=== PATIENT | male | born 1970 | race Caucasian/White ===

== ENCOUNTER → 2017-09-21 10:21 | Outpatient (CLI) | payer BC, SELFPAY ==
--- NOTE | 2017-09-21 10:28 | XR_ITS ---
XR KUB HISTORY: ITS.REASON: KIDNEY STONE ORDERING PHYSICIAN: Hong Krueger MD PATIENT AGE: 46 years COMPARISON: 09/15/2017 FINDINGS: The bowel gas pattern is unremarkable. No obvious obstruction.. No abnormal calcifications are evident. No obvious renal or ureteral calculi.. No acute bony anomalies evident. There is a small pelvic calcification on the right and inferiorly consistent with a phlebolith. A curvilinear 4 mm calcific density is present in the mid aspect of the left pelvis. This may be vascular in nature. Blastic areas once again noted involving the right ilium as recently described.. This area measures approximately 3 cm previously measuring 2.2 cm on a KUB of 07/10/2012 IMPRESSION: 1. No acute finding. No definite ureteral calculi. 2. Blastic lesion of the right ilium inferiorly slightly larger compared to an older exam. This may represent an enlarging bone island. Follow-up is recommended. Bone scan may be of further value to evaluate the activity of the lesion clinically aren't
== END ==
PROVIDERS: PCP Family Medicine; Visit Provider Urology
DX: N20.0 Calculus of kidney (principal)
CPT/HCPCS: 74018

== ENCOUNTER 2022-03-19 17:41 | Emergency (ER) | payer BC, SELFPAY ==
[2022-03-19 20:00] VITALS: BP 186/97; PULSE 82; RESP 19; TEMP 37.7; O2SAT 98; BMI 41.5
[2022-03-19 20:26] LABS: UTC Influenza A Antigen Negative (Negative); UTC Influenza B Antigen Negative (Negative)
--- NOTE | 2022-03-19 20:32 | EXP.UTC ---
Discharge Plan Disposition Patient Disposition: Home, Self-Care Condition: Good Prescriptions Prescriptions: New oseltamivir [Tamiflu] 75 mg capsule 75 mg PO BID 5 Days Qty: 10 0RF benzonatate 100 mg capsule 100 mg PO TID PRN (Reason: cough) Qty: 30 0RF No Action amoxicillin 500 mg capsule 500 mg PO Q12H 10 Days Qty: 20 0RF Referrals Follow up/Referrals: James Ramos MD [Primary Care Provider] - See instructions Activity Restrictions/Add. Instructions Additional Instructions/Restrictions: *Monitor Temp, Over the counter Motrin or Tylenol as directed/as needed Tylenol every 4 hours and Motrin every 6 hours (as long as your family doctor has told you that you can take it) for fever or pain. and straight to ER if unable to lower temp less than 101.0 after medication given *Warm salt water gargles may help to soothe the throat *Throat Lozenges? *Warm fluids like tea with honey may help to soothe the throat? *Sleep elevated *Humidifier/Vaporizer Drink plenty of fluids Follow up IMMEDIATELY for new or worsening symptoms or no Noticeable improvement over the next 48-72 hours. 911 for difficulty breathing or swallowing Clinical Impressions Clinical Impression: Flu-like symptoms Stand Alone Forms Stand Alone Forms: Work/School Release Instructions Patient Instructions: DI for Influenza -- Adult, How to Avoid a Cold or Flu, Oseltamivir Discharge ED Provider: Mónica Avery [facility] General Stated complaint: headache ache, body ache Mode of Arrival: Ambulatory Source of Information: Patient Limitations: No Limitations Time Seen by Provider: 03/19/22 20:32 Description of Symptoms (Recalled from Triage Doc. by RN): PATIENT C/O BODY ACHES, FEVER, COUGH, AND CONGESTION X 2 DAYS. RECENTLY EXPOSED TO FLU HEENT Symptoms (Recalled from RN notes): No Resp Symptoms (Recalled from RN notes): Yes Skin Symptoms (Recalled from RN notes): No MS Symptoms (Recalled from RN notes): No Functional Status (Recalled from RN notes): WNL History of Present Illness Provider Complaint: Patient states that he has been around his that tested positive a couple days ago for the flu State that he has been having body aches, cough, fever and nasal congestion State that today he was feeling worse and came in to get checked for the flu Related Data Previous Rx's Medication Instructions Recorded amoxicillin 500 mg capsule 500 mg PO Q12H sinus 10 days #20 10/10/18 caps benzonatate 100 mg capsule 100 mg PO TID PRN cough #30 caps 03/19/22 oseltamivir 75 mg capsule (Tamiflu) 75 mg PO BID 5 days #10 caps 03/19/22 Allergies Allergy/AdvReac Type Severity Reaction Status Date / Time No Known Allergies Allergy Verified 03/19/22 20:13 Worker's Comp Is this a Worker's Comp case?: No PFSH PFSH Medical History (Updated 03/19/22 @ 20:45 by Mónica Avery APRN) Kidney stone Social History (Updated 03/19/22 @ 20:12 by Yessenia Gonzalez RN) Smoking Status: Current every day smoker tobacco type: cigarettes packs per day: 2 alcohol intake: current substance use type: denies use current occupational status: employed Travel in the last 8 weeks: Inside the [place] household members: family housing: house ROS Obtained: Yes All systems reviewed & no additional complaints except as documented and Yes Systems reviewed as appropriate & no additional complaints except as documented Constitutional Constitutional: Reports system reviewed and no additional complaints, except as documented, Reports as per HPI, Reports body ache, Reports chills and Reports fever(s) ENT Ears, Nose, Mouth, and Throat: Reports system reviewed and no additional complaints, except as documented, Reports as per HPI and Reports nasal congestion Cardiovascular Cardiovascular: Reports system reviewed and no additional complaints, except as documented and Reports as per HPI Respiratory Respiratory: Repo
[2022-03-19 20:50] VITALS: BP 186/97; PULSE 82; RESP 19; TEMP 37.7; O2SAT 98
== END 2022-03-19 20:53 | disposition home or self-care (01) ==
PROVIDERS: Emergency Provider Nurse Practitioner; PCP Family Medicine
DX: J11.1 Influenza due to unidentified influenza virus with other respiratory manifestations (principal)
CPT/HCPCS: 87804; 99212; C9803; G0463; U0003; U0005

== ENCOUNTER 2022-04-19 08:06 | Emergency (ER) | payer BC, SELFPAY ==
[2022-04-19] VITALS (7 sets, daily range): BP systolic 135–156; BP diastolic 84–94; PULSE 63–85; RESP 18–20; TEMP 36.6–37.1; O2SAT 94–97; BMI 44.3
--- NOTE | 2022-04-19 08:12 | PC.NURSE ---
UA sent to lab
--- NOTE | 2022-04-19 08:40 | PC.NURSE ---
ANURADHA CONNELL at for patient eval
--- NOTE | 2022-04-19 08:41 | HMH.EDGENADL ---
Discharge Plan Disposition Patient Disposition: Home, Self-Care Condition: Good Prescriptions Prescriptions: New ibuprofen 800 mg tablet 800 mg PO Q8HP PRN (Reason: moderate pain ) Qty: 15 0RF hydrocodone-acetaminophen 5-325 mg tablet 1 tab PO Q6H PRN (Reason: pain) Qty: 8 0RF No Action amoxicillin 500 mg capsule 500 mg PO Q12H 10 Days Qty: 20 0RF oseltamivir [Tamiflu] 75 mg capsule 75 mg PO BID 5 Days Qty: 10 0RF benzonatate 100 mg capsule 100 mg PO TID PRN (Reason: cough) Qty: 30 0RF Referrals Follow up/Referrals: James Ramos MD [Primary Care Provider] - See instructions Activity Restrictions/Add. Instructions Additional Instructions/Restrictions: Ibuprofen as prescribed. [place] as needed for severe pain. Additional instructions for BACK PAIN: See your physician as soon as possible for further evaluation. Return immediately if back pain becomes intolerable, or if fever, numbness or weakness of your legs, loss of control of your bowels or bladder. Additional instructions for CONTROLLED SUBSTANCES: You have been prescribed a medication that is a controlled substance. Controlled substances include pain medications known as opiates and sedative nerve medications known as benzodiazepines. Tramadol, fioricet, and gabapentin are also controlled substances. Some common opiates include: Codeine (such as Tylenol #3) Hydrocodone (Vicodin, Lortab, Lorcet, [place]) Oxycodone (Percocet, Percodan, Oxycodone, Oxy IR) Some common benzodiazepines include: Diazepam (Valium) Lorazepam (Ativan) Alprazolam (Xanax) Clonazepam (Klonopin) Oxazepam (Serax) All of these controlled substances are highly addictive and frequently abused. Misuse can and frequently does lead to addiction as well as overdose and . Medication should be stored in a locked cabinet or other secure storage unit. Do not store the medication in a motor vehicle. Short term supplies, 3 days or less, are prescribed because of the highly addictive nature of the medication. Any of the controlled substance medication NOT taken should be disposed of properly and NOT SAVED. The recommended method of disposing of unused medications is: Place the medicines in a sealable plastic bag. If the medicine is a solid, crush it or add water to dissolve it. Add something undesirable (cat litter, coffee grounds, etc.) Dispose of sealed bag in household trash Do not flush or pour unused medicines down a sink or drain. Controlled substances should not be shared, given away or sold. Because of the addictive nature and frequent abuse, these medications are sometimes stolen. These medications should be kept in a safe place where they cannot be stolen. Do not keep them in your car or purse. Lost or stolen prescriptions for controlled substances WILL NOT BE REFILLED in this emergency department, regardless of whether a police report was filed. Clinical Impressions Clinical Impression: Low back pain Stand Alone Forms Stand Alone Forms: Work/School Release Instructions Patient Instructions: DI for Low Back Pain Discharge ED Provider: David Vallecillo General Adult HPI General Chief complaint: PAIN Stated complaint: Lower RT back pain Time Seen by Provider: 04/19/22 08:31 Mode of Arrival: Ambulatory Source of Information: Patient Limitations: No Limitations Description of Symptoms (Recalled from ER Triage Doc. by RN): pt c/o R flank pain that began lastnight. Pt reports pain worsens with movement. Pt denies any urinary symptoms. Pt reports hx of kidney stones. History of Present Illness HPI narrative: Complains of right lower back pain that began yesterday. States that he reached into the truck to get his lunch bucket and noticed a little twinge in his right lower back and thought at that time it might be a kidney stone. Since then he has severe pains with certain movements. Currently he is in no pain sitting on the side o
--- NOTE | 2022-04-19 08:44 | CT_ITS ---
FINAL REPORT CLINICAL HISTORY: R sided back pain, h/o kidney stones COMPARISON: September 15, 2017 FINDINGS: Axial CT images of the abdomen and pelvis were obtained without intravenous contrast. Coronal reformatted images were also obtained.This study was performed with techniques to keep radiation doses as low as reasonably achievable (ALARA). Individualized dose reduction techniques using automated exposure control or adjustment of mA and/or kV according to the patient's size were employed. Abdomen: There is mild scarring in the anterior right lung base. There is a single less than 3 mm nonobstructing right renal stone with no evidence of hydronephrosis. The gallbladder is present. There is mild fatty infiltration of the liver. There is a 17 mm low-attenuation right adrenal nodule consistent with an adenoma, stable. The spleen and pancreas have an unremarkable, unenhanced appearance. No inflammatory process is identified. There are postoperative changes along the anterior abdominal wall. Pelvis: The appendix is normal. There is no evidence of ureteral dilation or ureteral stone.No mass or abnormal fluid collection is identified. There is widespread colonic diverticulosis. IMPRESSION: Single less than 3 mm nonobstructing right renal stone with no evidence of hydronephrosis. No ureteral stone identified. Mild fatty liver. Widespread colonic diverticulosis without evidence of diverticulitis. Reviewed, Interpreted and Dictated by Stanislav Martinez III, MD Transcribed by Milly Chew Authenticated and [facility]
[2022-04-19 08:59] LABS: Microscopic, Urine URINE MICROSCOPIC (MICROSCOPIC)
[2022-04-19 09:11] LABS: Appearance,Urine CLEAR (Clear); Basophils # 0.1 K/mm3 (0-0.2); Basophils % 1.2 % (0.1-2.0); Bilirubin,Urine Negative (Negative); Blood, Urine Negative (Negative); Color,Urine YELLOW (Yellow); Eosinophils # 0.1 K/mm3 (0.0-0.4); Eosinophils % 2.1 % (0.1-12.0); Glucose,Urine (UA) Negative (Negative); Hematocrit 49.6 % (42.0-52.0); Hemoglobin 16.4 g/dL (14.1-18.0); Ketones,Urine Negative (Negative); Leukocyte Esterase,Urine Negative (Negative); Lymphocytes # 1.6 K/mm3 (0.7-4.5); Lymphocytes % 23.1 % (10-50); Mean Corpuscular HGB Conc 33.1 g/dL (31.8-35.4); Mean Corpuscular Hemoglobin 30.8 pg (27.0-31.2); Mean Platelet Volume 8.9 fl (7.4-10.4); Monocytes # 0.3 K/mm3 (0.1-1.0); Monocytes % 5.1 % (1.7-9.3); Neutrophils # 4.6 K/mm3 (1.8-7.8); Neutrophils % 68.5 % (37.0-80.0); Nitrate,Urine Negative (Negative); Platelet Count 203 K/mm3 (142-424); Protein,Urine Negative (Negative); Red Blood Count 5.34 M/mm3 (4.60-6.20); Red Cell Distribution Width 13.5 % (11.5-17.5); Urobilinogen,Urine 0.2 EU/dl (0.2); White Blood Count 6.8 K/mm3 (4.8-10.8)
[2022-04-19 09:13] LABS: Chloride 108 mmol/L (98-107); Potassium 4.1 mmoL/L (3.5-5.1); Sodium 141 mmol/L (136-145)
[2022-04-19 09:15] LABS: Alanine Aminotransferase 31 U/L (12-78); Alkaline Phosphatase 64 U/L (38-126); Anion Gap 13.1 mEq/L (5-15); Aspartate Amino Transferase 31 U/L (17-59); Bilirubin,Total 0.4 mg/dl (0.2-1.3); Blood Urea Nitrogen 14 mg/dl (9-20); Carbon Dioxide 24 mmol/L (22.0-30.0); Creatinine Clearance Estimated 128 mL/min (50-200); Estimated Glomerular Filt Rate 120 ml/min (>60); GFR (African American) 145 ML/MIN (>60)
[2022-04-19 09:16] LABS: Albumin Level 4.2 g/dl (3.5-5.0); Albumin/Globulin Ratio 1.9 (1.1-1.8); Calcium 9.1 mg/dl (8.4-10.2); Globulin 2.2 g/dL (1.3-3.2); Glucose 138 mg/dl (74-100); Lipase 46 U/L (23-300); Total Protein,Serum 6.4 g/dl (6.3-8.2)
[2022-04-19 09:26] LABS: Bacteria,Urine Trace /lpf; Squamous Epithelial Cell,Urine Occasional #/hpf (0-5)
--- NOTE | 2022-04-19 10:13 | PC.NURSE ---
Rounded on patient, helped get him more comfortable in the bed and his tv turned on. He reports no other needs. family at BS with no needs as well. They are aware that we are waiting on the CT report to be read by the radiologist.
--- NOTE | 2022-04-19 10:16 | PC.NURSE ---
Preliminary report faxed from radiology and given to ANURADHA CONNELL
== END 2022-04-19 10:53 | disposition home or self-care (01) ==
PROVIDERS: Emergency Provider Emergency Medicine; PCP Family Medicine
DX: M54.50 Low back pain, unspecified (principal); Z87.442 Personal history of urinary calculi
CPT/HCPCS: 74176; 80053; 81001; 83690; 85025; 96374; 96375; 99284; J2405

== ENCOUNTER → 2022-04-21 09:50 | Outpatient (CLI) | payer BC, SELFPAY ==
--- NOTE | 2022-04-21 09:57 | XR_ITS ---
FINAL REPORT CLINICAL HISTORY: RT HIP PAIN COMPARISON: CT dated April 19, 2022 and September 15, 2017 FINDINGS: RIGHT HIP Two views of the right hip including an AP pelvis demonstrate no acute fracture or dislocation. There are mild degenerative changes in the hips. A sclerotic focus in the right iliac bone is stable since the CT in 2017. This may represent a bone island. The visualized bony structures are well aligned. No soft tissue abnormality is seen. IMPRESSION: Mild degenerative changes in both hips. Stable sclerotic focus in the right iliac bone may represent a bone island. Reviewed, Interpreted and Dictated by Stanislav Martinez III, MD Transcribed by Milly Chew Authenticated and [facility]
== END ==
PROVIDERS: PCP Family Medicine; Visit Provider Physician Assistant
DX: M25.551 Pain in right hip (principal)
CPT/HCPCS: 73502

== ENCOUNTER → 2022-11-10 13:25 | Outpatient (CLI) | payer BC, SELFPAY | PROVIDERS: PCP Family Medicine; Visit Provider Family Medicine | DX: G47.30 Sleep apnea, unspecified (principal); R53.83 Other fatigue; R06.83 Snoring; R03.0 Elevated blood-pressure reading, without diagnosis of hypertension; E66.01 Morbid (severe) obesity due to excess calories; Z68.42 Body mass index [BMI] 45.0-49.9, adult | CPT/HCPCS: G0399 ==

== ENCOUNTER 2024-09-09 08:26 | Day surgery (SDC) | payer BC, SELFPAY ==
[2024-09-04 17:17] VITALS: BMI 40.6
[2024-09-09] VITALS (8 sets, daily range): BP systolic 117–167; BP diastolic 55–109; PULSE 62–93; RESP 16–18; TEMP 36.2; O2SAT 95–98
--- NOTE | 2024-09-09 09:30 | P.PNANES_ITS ---
[facility] Disclaimer: The information contained in this section may have been updated after the patient was seen, as this information can be updated by other users. Medical History History of ganglion cyst Low back pain Flu-like symptoms Kidney stone Renal colic on right side Surgical History History of hernia repair History of renal stent Family History Other No significant family history Social History Smoking Status: Current every day smoker tobacco type: cigarettes packs per day: 2 alcohol intake: never substance use type: denies use current occupational status: employed Travel in the last 8 weeks?: Inside the [facility] household members: family housing: house Have you lived/traveled outside US in past 30 days?: No Contact w/someone who lives/traveled outside US past 30 days?: No Exposure to someone with infectious disease in past 14 days?: No Do you have a fever (greater than 100.4 F or 38 C)?: No Have you tested positive for COVID-19?: No Exposed to someone with COVID-19 in past 14 days?: No Do you have a sore throat?: No Do you have a cough?: No Do you have any weakness?: No Do you have any diarrhea?: No Are you experiencing any unusual bleeding?: No Do you have any muscle aches/pain?: No Do you have any abdominal pain?: No Are you experiencing loss of taste or smell?: No [facility] Anesthesia Checklist Patient Identification Patient Identification: Arm Band Structural Data Admitted From: Home Planned Operative Procedure/s: Colonoscopy Consent for Planned Operative Procedure(s) Verified: Yes Verified Documents: Surgical Consent and History and Physical NPO Status Verified Time NPO: 07:00 (finished prep) Additional verifications Anesthesia Reactions: No Airway Assessment Mallampati Score:: Class II C-Spine Mobility Assessed: Yes TMJ Mobility Assessed: Yes Dentition: Good Dentition Neurological Assessment Level of Consciousness: Awake, Alert and Appropriate Anesthesia Plan Anesthesia Risk discussed: Yes Anesthesia Plan: Verified ASA Class: III Anesthesia Type: MAC
--- NOTE | 2024-09-09 09:46 | P.HP_ITS ---
History of Present Illness *Admission Date: 09/09/24 *Reason for visit:: Screening for colon cancer *History of present illness: Mr. Peacock is a 53-year-old gentleman who is here for initial screening colonoscopy. The examination is deemed medically necessary for screening colonoscopy. The patient has been seen, interviewed and examined prior to the procedure by both myself and the anesthesia provider. [facility] Disclaimer: The information contained in this section may have been updated after the patient was seen, as this information can be updated by other users. Medical History (Updated 09/09/24 @ 09:56 by Damaso Riley II, MD) History of ganglion cyst Low back pain Flu-like symptoms Kidney stone Renal colic on right side Surgical History History of hernia repair History of renal stent Family History Other No significant family history Social History Smoking Status: Current every day smoker tobacco type: cigarettes packs per day: 2 alcohol intake: never substance use type: denies use current occupational status: employed Travel in the last 8 weeks?: [place] the [place] household members: family housing: house Have you lived/traveled outside US in past 30 days?: No Contact w/someone who lives/traveled outside US past 30 days?: No Exposure to someone with infectious disease in past 14 days?: No Do you have a fever (greater than 100.4 F or 38 C)?: No Have you tested positive for COVID-19?: No Exposed to someone with COVID-19 in past 14 days?: No Do you have a sore throat?: No Do you have a cough?: No Do you have any weakness?: No Do you have any diarrhea?: No Are you experiencing any unusual bleeding?: No Do you have any muscle aches/pain?: No Do you have any abdominal pain?: No Are you experiencing loss of taste or smell?: No Other Medical History Have you received the Flu Vaccine for this season: No Have you received the Pneumonia Vaccine: No Review of Systems Review of Systems Review of systems (narrative): Negative *Cardiovascular Comments: Negative *Gastrointestinal Comments: Negative *Genitourinary Comments: Negative *Musculoskeletal Comments: Negative *Neurologic Comments: Negative Meds Home Medications and Allergies Home Medications ?Medication ?Instructions ?Recorded ?Confirmed ?Type irbesartan 300 mg tablet 300 mg PO DAILY 09/04/24 09/04/24 History New Prescriptions to Start Prescriptions: Allergies Allergy/AdvReac Type Severity Reaction Status Date / Time No Known Allergies Allergy Verified 08/03/22 11:29 Exam Data for Last 24 hours Vital signs and Labs for Last 24 Hours: Temp Pulse Resp BP Pulse Ox O2 Del Method 97.1 F L 83 18 167/109 H 96 Room Air 09/09/24 09:11 09/09/24 09:11 09/09/24 09:11 09/09/24 09:11 09/09/24 09:11 09/09/24 09:11 *Routine HEENT Exam Head: Present normocephalic Eye: Present EOMI and PERRL ENT: Present mucous membranes moist *Routine Neck Exam Neck: Present supple *Routine Respiratory Exam Respiratory: Present CTA bilaterally *Routine Cardiovascular Exam Cardiovascular: Present RRR *Routine Abdominal Exam Abdominal: Present soft and normoactive bowel sounds; Absent tenderness *Routine Rectal Exam Rectal:: deferred *Routine Genitalia Exam Genitalia:: deferred *Routine Extremities Exam Extremities: Absent cyanosis, clubbing or edema *Routine Skin Exam Skin: Present warm; Absent rash *Routine Neurological Exam Neurological: Present alert and oriented X3 Assessment and Plan *Assessment and plan (1) Screening for colon cancer: Status: Acute Category: Medical Code(s): Z12.11 - Encounter for screening for malignant neoplasm of colon (2) Bleeding internal hemorrhoids: Status: Acute Category: Medical Code(s): K64.8 - Other hemorrhoids Plan A/P: 1. Screening for colon cancer is the preprocedural diagnosis. The patient will be anesthetized/sedated using MAC sedation. The patient has been seen and examined. Cardiac and lung assessment prior to the examination is stable. Proceed with planned initial screening colonoscopy.
--- NOTE | 2024-09-09 09:56 | HMH.PROCNOTE ---
[facility] Procedure Note Date: 09/09/24 Time: 10:12 Procedure Note:: Colonoscopy Procedure Report: Colonoscopy with hemorrhoid band ligation Endoscopist: Damaso Riley II, MD Referring physician: James Ramos MD Date of Procedure: September 09, 2024 Equipment: Olympus 190 variable stiffness pediatric colonoscope Sedation: MAC sedation Indication: Mr. Peacock is a 53-year-old gentleman who is here for initial screening colonoscopy. He reports no abdominal pain, weight loss or change in his bowel habits. The patient does have some longer-term hemorrhoidal bleeding with blood in the toilet bowl and on the tissue that may occur 2 or 3 times a week. This has been going on for more than a year. He also gets some hemorrhoidal prolapse. He does state that his maternal aunt may have had colon cancer. Procedure: Prior to the procedure, a history and physical exam was performed, and patient's medications and allergies were reviewed. The risks, benefits and alternatives of the sedation and procedure were discussed with the patient. All questions were answered and informed consent was obtained. The patient was brought to the procedure room. Patient identification and proposed procedure were verified by the physician and the nurse. The patient was placed in a left lateral decubitus position and the scope was passed under direct vision. Throughout the procedure, the patient's blood pressure, pulse, and oxygen saturations were monitored continuously. The colonoscopy was accomplished without difficulty. The patient tolerated the procedure well. Findings: On digital rectal examination there was normal rectal tone. There were no external hemorrhoids. The colonoscope was introduced through the anal canal to the rectum and advanced to the cecum. The ileocecal valve and appendiceal orifice were identified. The scope was advanced a short distance into the ileum which appeared grossly normal. The scope was then withdrawn into the colon. The cecum, ascending and transverse colon and mucosa were grossly normal. There were scattered diverticuli throughout the colon but more predominantly in the descending and sigmoid colon (LEFT colon). The rectum itself was normal. Upon retroflexion within the rectum there were grade 2-3 internal hemorrhoids. 3 columns of hemorrhoids were banded using 3 bands with excellent ligation effect. The preparation was excellent throughout with [place] Preparation Score of 9. The cecal time was 12 minutes. Impression: 1. Pandiverticulosis 2. Grade 2-3 internal hemorrhoids status post band ligation x 3 Plan: The patient will not require surveillance colonoscopy again for 10 years by ACS guidelines. I would encourage psyllium bulking fiber supplementation on a long-term daily maintenance basis.
== END 2024-09-09 11:20 | disposition home or self-care (01) ==
PROVIDERS: PCP Family Medicine; Visit Provider Internal Medicine Gastroenterology
PROC: 0DJD8ZZ Inspection of Lower Intestinal Tract, Via Natural or Artificial Opening Endoscopic (ICD-10-PCS; CPT 45378; principal; 2024-09-09 10:00)
DX: Z12.11 Encounter for screening for malignant neoplasm of colon (principal); K62.5 Hemorrhage of anus and rectum; K64.8 Other hemorrhoids; K57.30 Diverticulosis of large intestine without perforation or abscess without bleeding
CPT/HCPCS: 45398; C1889

== ENCOUNTER 2024-10-07 22:00 | Emergency (ER) | payer BC, SELFPAY ==
[2024-10-07] VITALS (7 sets, daily range): BP systolic 152–170; BP diastolic 78–107; PULSE 61–74; RESP 16; TEMP 36.8; O2SAT 96–98; BMI 39.4
--- OUTSIDE RECORDS SUMMARY | 2024-10-07 22:41 | XMS_ITS | Data Portability ---
Author Organization [facility] Address [address] [place] [address] Assessment Encounter Date Assessment Date Assessment LastModified by Organization Details LastModified Time 09/25/2017 09/25/2017 SURGERY DATE: 09/25/2017 PREOPERATIVE DIAGNOSIS: Right proximal ureteral stone. POSTOPERATIVE DIAGNOSIS: Right proximal ureteral stone. PROCEDURE: Right ureteroscopy, laser lithotripsy and stone extraction with right stent placement. ANESTHESIA: General. COMPLICATIONS: None. CONDITION: Stable. SURGEON: Hong Krueger MD INDICATIONS: This is a 46-year-old white male with a 5 mm stone at the junction of the proximal to mid ureter. He has been dealing with the stone for a couple of weeks now and wants to proceed with urologic management as he has missed too much work. OPERATIVE NOTE: The patient taken to the operating room after informed consent was obtained. He was placed on the operating table in supine position. General anesthesia administered. Sequential compression device was placed and preoperative antibiotics administered. The patient was then placed into dorsal lithotomy position and prepped and draped in the standard surgical fashion. A 21-Belgian cystoscope passed into the urethra and into the bladder. The bladder was within normal limits. A guidewire passed into the right ureteral orifice and up to the level of the stone, but there was difficulty guiding the wire by the stone, so a ureteral catheter was passed over the wire and up to the level of the stone and we were able to leap frog the wire by the stone. The wire passed into the renal pelvis and we removed the ureteral catheter and removed the cystoscope and passed our semirigid ureteroscope into the bladder and into the right ureter and up to the level of the stone. A 200 nm laser wire was then used to fragment the stone. The stone was impacted at point of obstruction. It was right at the level of the iliac vessels as well. Care was taken to break the stone into small fragments and a 2.4 Belgian Nitinol stone basket then used to basket the larger fragments out. After all the significant stones were removed, the ureteroscope was removed and there was no injury to the ureter. We replaced our cystoscope and back loaded the wire over the scope and passed a 4.8 x 26 Belgian stent. The wire was removed and a good curl was noted proximally and distally. The string was left on for late removal. Some of the stone fragments were send off for analysis. The stone was not well calcified. The patient was transferred to recovery room in stable condition. [email or web address] Not available 09/26/2017 01:36:18 Plan of Treatment Reminders Order Date Submit Date Provider Last Modified By Organization Details Last Modified Time Details Appointments None record ed. Lab None record ed. Referral None record ed. Procedures None record ed. Surgeries None record ed. Imaging None record ed. Medication Orders None record ed. Patient TargetsNo targets recorded. Patient InstructionsNo instructions recorded. Reason for Referral None Reported. Results Created Date Observation Date Name Description Value Unit Range Abnormal Flag Note LastModifiedBy Organization Detail LastModifiedTime 09/26/19 18 09/28/2017 kidne y stone yulia sis nidus Not observ ed normal Not Available [facility] [address] [place], [address], 09/28/2017 17:05:32 09/26/19 18 09/28/2017 kidne y stone yulia sis composition See Below normal Calci um Oxala te Dihyd rate (Wedd ellit e) 60% Calci um Oxala te Monoh ydrat e (Whew ellit e) 20% Carbo vini Apati te (Dahl lite) 20% Not Available [facility] [address] [place], [address], 09/28/2017 17:05:32 09/26/19 18 09/28/2017 kidne y stone yulia sis weight 0.0140 g normal This test was devel oped and its yulia tical perfo rmanc e clarence cteri stics have been deter mined by [facility] Rachel jitendra. It has not been clear ed or appro phuong by the [place] Food and Drug Admin istra tion. This assay has been valid ated pursu ant to the CLIA regul ation s and is used for clini rita purpo ses. TEST PERFO RMED AT: [facility] [address] [place] [address] Rahat URBANO,PHD Not Available [facility] [address] [place] [address], [phone], 09/28/2017 17:05:32 Result Notes None recorded. Medical Equipment None Reported. Medications Name Sig Start Date Stop Date Status Note LastModified by Organization Details LastModified Time Keflex 500 mg capsule Take 1 capsule every 6 hours by oral route. 018 active Not Available Not Available Not Avai lable [place] 5 mg-325 mg tablet Take 1 tablet every 6 hours by oral route. 018 active Not Available Not Available Not Avai lable Vitals None Recorded Social History None recorded. Functional Status None recorded. Mental Status None recorded. Family History Nothing Reported. Medical History No medical history recorded. Past Encounters Encounter ID Performer Location Encounter Start Date Encounter Closed Date Diagnosis/Indication Diagnosis SNOMED-CT Code Diagnosis ICD10 Code Diagnosis Note [id number] HONG KRUEGER MD SURGERY SCHEDULE [address] [place] [id number] 09/25/2017 14:16:59 09/25/2017 14:17:42 Health Concerns Section Related Observation LastModified by Organization Detai ls LastModified Time None Recorded Concern Status LastModified by Organization Details LastModified Time None Recorded Advance Directives Directive None Recorded Payers Insurance Date Sequence Insurance Name Policy Number Policy Winter Covered Member ID Winter Member ID Guarantor Name 04/01/2020 1 [employer] [id number] Howard Peacock [id number] James Peacock
[2024-10-07] MEDS: ONDANSETRON 4MG/2ML VIAL 4 MG IV (23:36)
[2024-10-07] MEDS: LACTATED RINGERS 1000ML 1,000 ML 999 ML IV (23:36)
[2024-10-07 23:37] LABS: HIV Combo NEGATIVE (Negative)
[2024-10-07] MEDS: MORPHINE 4MG/ML SYRINGE 4 MG IV (23:37)
[2024-10-07] MEDS: KETOROLAC 30MG/ML VIAL 30 MG IV (23:37)
[2024-10-07 23:45] LABS: Alanine Aminotransferase 21 U/L (12-78); Albumin Level 4.3 g/dl (3.5-5.0); Alkaline Phosphatase 65 U/L (38-126); Anion Gap 8.1 mEq/L (5-15); Aspartate Amino Transferase 22 U/L (17-59); Bilirubin,Total 0.7 mg/dl (0.2-1.3); Blood Urea Nitrogen 15 mg/dl (9-20); Calcium 9.2 mg/dl (8.4-10.2); Carbon Dioxide 30 mmol/L (22.0-30.0); Chloride 106 mmol/L (98-107); Creatinine Clearance Estimated 154 mL/min (50-200); Estimated Glomerular Filt Rate 79 ml/min (>60); GFR (African American) 95 ML/MIN (>60); Globulin 2.2 g/dL (1.3-3.2); Glucose 120 mg/dl (74-100); Hepatitis C Ab Qual. W/ RFX NEGATIVE (Negative); Potassium 4.1 mmoL/L (3.5-5.1); Sodium 140 mmol/L (136-145); Total Protein,Serum 6.5 g/dl (6.3-8.2)
[2024-10-07 23:46] LABS: Basophils # 0.1 K/mm3 (0-0.2); Basophils % 0.6 % (0.1-2.0); Eosinophils # 0.2 Kmm3 (0.0-0.4); Eosinophils % 1.9 % (0.1-12.0); Hematocrit 45.7 % (42.0-52.0); Hemoglobin 15.9 g/dL (14.1-18.0); Immature Granulocytes # 0.03 10^3uL; Immature Granulocytes % 0.4 %; Lymphocytes # 1.7 K/mm3 (0.7-4.5); Lymphocytes % 20.1 % (10-50); Mean Corpuscular HGB Conc 34.8 g/dL (31.8-35.4); Mean Corpuscular Hemoglobin 31.7 pg (27.0-31.2); Mean Corpuscular Volume 91.2 fl (80-94); Mean Platelet Volume 10.4 fl (7.4-10.4); Monocytes # 0.7 K/mm3 (0.1-1.0); Monocytes % 7.9 % (1.7-9.3); Neutrophils # 5.8 K/mm3 (1.8-7.8); Neutrophils % 69.1 % (37.0-80.0); Nucleated Red Blood Cells # 0 10^3/uL; Nucleated Red Blood Cells % 0 %; Platelet Count 200 K/mm3 (142-424); Red Blood Count 5.01 M/mm3 (4.60-6.20); Red Cell Distribution Width 13.2 % (11.5-17.5); Red Cell Distribution Width-SD 44.6 fL; White Blood Count 8.4 K/mm3 (4.8-10.8)
[2024-10-08] VITALS (8 sets, daily range): BP systolic 129–170; BP diastolic 59–104; PULSE 63–75; RESP 18; TEMP 36.6; O2SAT 94–97
--- NOTE | 2024-10-08 | CT_ITS ---
PROCEDURE INFORMATION: Exam: CT Abdomen And Pelvis With Contrast Exam date and time: 10/08/2024 12:25 AM Age: 53 years old Clinical indication: Abdominal pain; Additional info: R flank pain HX kidney stones TECHNIQUE: Imaging protocol: Computed tomography of the abdomen and pelvis with contrast. Radiation optimization: All CT scans at this facility use at least one of these dose optimization techniques: automated exposure control; mA and/or kV adjustment per patient size (includes targeted exams where dose is matched to clinical indication); or iterative reconstruction. Contrast material: ISOVUE; Contrast volume: 75 ml; Contrast route: IV; COMPARISON: CT ABDOMEN PELVIS WO CON 04/19/2022 8:52 AM FINDINGS: Lungs: Minimal to mild atelectasis/scarring. Liver: Fatty infiltration. Gallbladder and biliary ducts: No calcified stones. No ductal dilation. Pancreas: Unremarkable. No ductal dilation. Spleen: Mildly enlarged, stable. Adrenal glands: 2.0 x 2.0 x 1.8 cm lesion within lateral limb of RIGHT adrenal gland, mildly increased in size, indeterminate by CT criteria. Probable 1.3 x 0.8 x 1.0 cm adenoma within medial limb of RIGHT adrenal gland. Kidneys and ureters: Moderate stranding about RIGHT kidney. Several too small to characterize lesions within kidneys (<1 cm). Small calculus within LEFT kidney. Moderate pelvocaliectasis of RIGHT kidney. Moderate dilatation of RIGHT proximal ureter. 0.6 x 0.5 x 0.5 cm calculus within RIGHT mid ureter. Stomach and bowel: No definite mural thickening. No obstruction. Appendix: Normal caliber. No inflammation. Intraperitoneal space: No significant fluid collection. No definite free air. Vasculature: Mild to moderate atherosclerotic disease of aorta and iliac arteries. No aneurysm. Lymph nodes: No pathologically enlarged lymph nodes. Urinary bladder: Unremarkable. Reproductive: Unremarkable as visualized. Bones/joints: No acute fracture. Soft tissues: Postsurgical changes of anterior abdominal wall. IMPRESSION: 1. RIGHT mid ureteral calculus with moderate hydroureteronephrosis. 2. RIGHT adrenal lesion, mildly increased in size. Recommend nonemergent MRI to exclude malignancy. COMMENTS: Consistent with the [employer]'s Incidental Findings Committee white paper (J Am Cheryl Radiol 2018): Any incidental renal lesion less than 1 cm or classified as too small to characterize, or any incidental cystic renal lesion characterized as simple-appearing, is likely benign. No follow-up imaging is recommended for these lesions per consensus recommendations based on imaging criteria.
[2024-10-08 00:03] LABS: Prothrombin Time 10.7 seconds (10.1-12.5)
[2024-10-08 00:04] LABS: INR 0.96 (0.9-1.1)
[2024-10-08] MEDS: IOPAMIDOL-370 (76%);100ML BOTTLE 75 ML IV (00:27)
[2024-10-08 00:59] LABS: Microscopic, Urine URINE MICROSCOPIC (MICROSCOPIC)
[2024-10-08 01:00] LABS: Appearance,Urine CLEAR (Clear); Bilirubin,Urine Negative (Negative); Blood, Urine 2+ (Negative); Color,Urine YELLOW (Yellow); Glucose,Urine (UA) Negative (Negative); Ketones,Urine Negative (Negative); Leukocyte Esterase,Urine Negative (Negative); Nitrate,Urine Negative (Negative); PH,Urine 6.5 (5.0-8.5); Protein,Urine Negative (Negative); Urobilinogen,Urine 0.2 EU/dl (0.2)
[2024-10-08 01:08] LABS: RBC,Urine TNTC #/hpf (0-3)
[2024-10-08] MEDS: TAMSULOSIN 0.4MG CAPSULE 0.4 MG PO (02:11)
[2024-10-08] MEDS: OXYCODONE 5MG IMMEDIATE RELEASE TABLET 2.5 MG PO (02:12)
--- NOTE | 2024-10-08 02:32 | HMH.EDGENADL ---
Discharge Plan Disposition Patient Disposition: Home, Self-Care Condition: Fair Prescriptions Prescriptions: New ondansetron 4 mg tablet,disintegrating 4 mg PO Q6H PRN (Reason: nausea and vomiting) Qty: 10 0RF hydrocodone-acetaminophen 5-325 mg tablet 1 tab PO Q6H PRN (Reason: pain) Qty: 10 0RF tamsulosin 0.4 mg capsule 0.4 mg PO HS Qty: 14 0RF No Action irbesartan 300 mg Tablet 300 mg PO DAILY Referrals Follow up/Referrals: James Ramos MD [Primary Care Provider, Medical] - See instructions Referral Note: follow up for kidney stone follow up for R adrenal adenoma Hong Krueger MD [Referring, Urology] - See instructions Referral Note: 6mm R ureteral stone w/ hydro. Patient is a prior patient of yours Activity Restrictions/Add. Instructions Additional Instructions/Restrictions: Your evaluated in the ER and are appropriate for discharge at this time. Take the prescribed medications as directed. Take tamsulosin to help pass the stone. Urinate through a strainer and catch the stone if possible. Drink plenty of fluids to maintain good hydration, good kidney function, and to help pass the stone. Take Tylenol ibuprofen if needed for pain, do not exceed the recommended dose on the bottle. Drink water and eat a small snack each time you take these medications to avoid side effects. Only take the prescribed hydrocodone?acetaminophen if needed for severe breakthrough pain. This is a controlled substance and can cause addiction. They can also cause constipation so you may need to take a fiber supplement or gentle laxative. Do not drive or operate machinery after taking hydrocodone. Be mindful that the hydrocodone contains acetaminophen (Tylenol) so be cautious of this when considering your daily maximum acetaminophen dose. Take the prescribed ondansetron (Zofran) if needed for nausea or vomiting. Call Dr. Krueger's office first thing in the morning to make an appointment for follow-up. Also call Dr. Ramos's office for close outpatient follow-up. Dr. Ramos's office may be able to help you get quicker follow-up with a urologist if needed. Return to the ER with any new, worsening, or otherwise concerning symptoms as discussed including but not limited to uncontrollable pain, symptoms of urinary infection including fever or burning with urination, or decreased urine output. Clinical Impressions Clinical Impression: Ureterolithiasis, Acute right flank pain, Hydronephrosis Stand Alone Forms Stand Alone Forms: Work/School Release Print Language Print Language: Tuvaluan Discharge ED Provider: Parth Garcia Adult HPI General Chief complaint: PAIN Stated complaint: Pain rt side poss kidney stones Time Seen by Provider: 10/07/24 23:24 Mode of Arrival: Ambulatory Source of Information: Patient Description of Symptoms (Recalled from ER Triage Doc. by RN): Pt presents with right flank pain that began at approx 2030. Rates pain 8/10. Hx of kidney stones. Pt denies dysuria, nausea present. History of Present Illness HPI narrative: 53-year-old male with history of kidney stones presents to the ER with right flank pain that began approximately 1.5 hours prior to arrival. Patient reports his pain is 8 out of 10. It is mainly in the mid right flank but does radiate to the low abdomen as well. No dysuria or hematuria. Patient is having nausea but no vomiting. No fevers or chills, no chest pain or difficulty breathing. Patient reports this feels exactly like kidney stone. He has previously had to have stones removed and stents placed which was done by Dr. Krueger many years ago. Related Data Home Medications ?Medication ?Instructions ?Recorded ?Confirmed irbesartan 300 mg tablet 300 mg PO DAILY 09/04/24 09/04/24 Previous Rx's ?Medication ?Instructions ?Recorded hydrocodone 5 mg-acetaminophen 325 1 tab PO Q6H PRN pain #10 tabs 10/08/24 mg tablet ondansetron 4 mg disintegrating 4 mg PO Q6H PRN nausea and 10/08/24 tablet vomiting #10 tabs tamsulosin 0.4 mg capsule 0.4 mg PO HS #14 caps 10/08/24 Allergies Allergy/AdvReac Type Severity Reaction Status Date / Time No Known Allergies Allergy Verified 08/03/22 11:29 [facility] Disclaimer: The information contained in this section may have been updated after the patient was seen, as this information can be updated by other users. Medical History (Updated 10/08/24 @ 02:09 by Nery Mcclain MD) History of ganglion cyst Low back pain Flu-like symptoms Kidney stone Renal colic on right side Surgical History History of hernia repair History of renal stent Family History Other No significant family history Social History Smoking Status: Current every day smoker tobacco type: cigarettes packs per day: 2 alcohol intake: never substance use type: denies use current occupational status: employed Travel in the last 8 weeks?: Inside the [place] household members: family housing: house Have you lived/traveled outside US in past 30 days?: No Contact w/someone who lives/traveled outside US past 30 days?: No Exposure to someone with infectious disease in past 14 days?: No Do you have a fever (greater than 100.4 F or 38 C)?: No Have you tested positive for COVID-19?: No Exposed to someone with COVID-19 in past 14 days?: No Do you have a sore throat?: No Do you have a cough?: No Do you have any weakness?: No Do you have any diarrhea?: No Are you experiencing any unusual bleeding?: No Do you have any muscle aches/pain?: No Do you have any abdominal pain?: No Are you experiencing loss of taste or smell?: No Other Medical History Have you received the Flu Vaccine for this season: No Have you received the Pneumonia Vaccine: No ROS Obtained: Yes Systems reviewed as appropriate & no additional complaints except as documented Per HPI Physical Exam General General appearance: alert and in no apparent distress Head Head exam: atraumatic and normocephalic Eye Eye exam: Present PERRL and EOMI ENT ENT exam: Present mucous membranes moist Neck Neck exam: Present normal inspection and full ROM Chest Chest inspection: Present symmetric chest wall rise Respiratory Respiratory exam: Present normal lung sounds bilaterally; Absent respiratory distress, wheezes or stridor Cardiovascular Cardiovascular exam: Present regular rate and normal rhythm Abdominal Exam Abdominal exam: Present soft; Absent distention or tenderness Extremities Exam Extremities exam: Present full ROM Back Exam Back exam: Present CVA tenderness (R); Absent CVA tenderness (L) Neurological Exam Neurological exam: Present alert and oriented X3; Absent motor sensory deficit Psychiatric Psychiatric exam: Present normal affect and normal mood Skin Skin exam: Present warm and dry Medical Decision Making Medical Records Medical records reviewed: Yes I reviewed the patient's medical records. Screening: Per USPSTF and CDC recommendations, given the prevalence of disease in our region, it is our hospital?s policy to screen for HIV and viral Hepatitis for all patients aged 18 and over and those with ongoing risk factors. MR Comment: CT abdomen pelvis from April 2022 demonstrated intrarenal stone 3 mm. Wander Inquiry Pt receiving controlled substance: Yes Wander was queried for this patient: No Reason not queried -: Emergent pt cond-no time Risks and benefits of using a controlled substance: were discussed with pt by me Comment: PDMP reviewed by me and negative Vital Signs: 10/07/24 22:16 10/07/24 22:35 10/07/24 22:45 Temperature 98.3 F Temperature Source Oral Pulse Rate 69 74 Pulse Rate [Left] 67 Respiratory Rate 16 Blood Pressure 154/90 H Blood Pressure [Right Arm] 156/90 H Blood Pressure Mean Blood Pressure Mean [Right Arm] 112 Blood Pressure Source Blood Pressure Source [Right Arm] Automatic Cuff Blood Pressure Position Blood Pressure Position [Right Arm] Sitting 02 Sat by Pulse Oximetry 96 98 98 Oxygen Delivery Method Room Air 10/07/24 23:00 10/07/24 23:30 10/07/24 23:42 Temperature Temperature Source Pulse Rate 69 68 68 Pulse Rate [Left] Respiratory Rate Blood Pressure 152/88 H 160/78 H 164/107 H Blood Pressure [Right Arm] Blood Pressure Mean Blood Pressure Mean [Right Arm] Blood Pressure Source Blood Pressure Source [Right Arm] Blood Pressure Position Blood Pressure Position [Right Arm] 02 Sat by Pulse Oximetry 97 96 97 Oxygen Delivery Method 10/07/24 23:43 10/08/24 00:01 10/08/24 00:45 Temperature Temperature Source Pulse Rate 61 67 73 Pulse Rate [Left] Respiratory Rate Blood Pressure 170/107 H 141/71 H 152/98 H Blood Pressure [Right Arm] Blood Pressure Mean 94 Blood Pressure Mean [Right Arm] Blood Pressure Source Blood Pressure Source [Right Arm] Blood Pressure Position Blood Pressure Position [Right Arm] 02 Sat by Pulse Oximetry 96 95 97 Oxygen Delivery Method 10/08/24 00:57 10/08/24 00:59 10/08/24 01:00 Temperature Temperature Source Pulse Rate 69 63 70 Pulse Rate [Left] Respiratory Rate Blood Pressure 170/104 H 159/95 H 148/87 H Blood Pressure [Right Arm] Blood Pressure Mean Blood Pressure Mean [Right Arm] Blood Pressure Source Blood Pressure Source [Right Arm] Blood Pressure Position Blood Pressure Position [Right Arm] 02 Sat by Pulse Oximetry 95 95 94 L Oxygen Delivery Method 10/08/24 01:31 10/08/24 02:00 10/08/24 02:17 Temperature 97.9 F Temperature Source Oral Pulse Rate 75 68 68 Pulse Rate [Left] Respiratory Rate 18 Blood Pressure 129/59 L 141/76 H 141/76 H Blood Pressure [Right Arm] Blood Pressure Mean Blood Pressure Mean [Right Arm] Blood Pressure Source Automatic Cuff Blood Pressure Source [Right Arm] Blood Pressure Position Supine Blood Pressure Position [Right Arm] 02 Sat by Pulse Oximetry 95 96 Oxygen Delivery Method Room Air Lab Data Lab Results 10/07/24 22:31: WBC 8.4, RBC 5.01, Hgb 15.9, Hct 45.7, MCV 91.2, MCH 31.7 H, MCHC 34.8, RDW 13.2, Plt Count 200, MPV 10.4, Neut % (Auto) 69.1, Lymph % (Auto) 20.1, Tama % (Auto) 7.9, Eos % (Auto) 1.9, Baso % (Auto) 0.6, Neut # (Auto) 5.8, Lymph # (Auto) 1.7, Tama # (Auto) 0.7, Eos # (Auto) 0.2, Baso # (Auto) 0.1, PT 10.7, INR 0.96, Sodium 140, Potassium 4.1, Chloride 106, Carbon Dioxide 30, Anion Gap 8.1, BUN 15, Creatinine 1.00, Estimated Creat Clear 154, Estimated GFR 79, Est GFR ( Amer) 95, Glucose 120 H, Calcium 9.2, Total Bilirubin 0.7, AST 22, ALT 21, Alkaline Phosphatase 65, Total Protein 6.5, Albumin 4.3, Globulin 2.2, Albumin/Globulin Ratio 2.0 H, HCV Ab ZARIA w/Rflx PCR Qn Negative, HIV Ag/Ab Combo Qual Negative 10/08/24 00:55: Urine Color Yellow, Urine Appearance Clear, Urine pH 6.5, Ur Specific Ada 1.010, Urine Protein Negative, Urine Glucose (UA) Negative, Urine Ketones Negative, Urine Blood 2+ A, Urine Nitrate Negative, Urine Bilirubin Negative, Urine Urobilinogen 0.2, Ur Leukocyte Esterase Negative, Urine RBC Tntc 10/07/24 22:31 10/07/24 22:31 Orders (Tests/Meds): ED MEDICATIONS Discontinued Medications Generic Name Dose Route Start Last Admin Trade Name Dhara PRN Reason Stop Dose Admin Lactated Ringer's 1,000 mls @ 999 mls/hr 10/07/24 23:31 10/07/24 23:36 Lactated Ringer's 1000 Ml Bag IV 10/08/24 00:31 999 mls/hr .Q1H1M ONE Administration Iopamidol 75 ml 10/08/24 00:26 10/08/24 00:27 Iopamidol-370 (76%);100ml Bottle IV 10/08/24 00:27 75 ml ONCE ONE Administration Ketorolac Tromethamine 30 mg 10/07/24 23:29 10/07/24 23:37 Ketorolac 30mg/Ml Vial IV 10/07/24 23:30 30 mg ONCE ONE Administration Morphine Sulfate 4 mg 10/07/24 23:29 10/07/24 23:37 Morphine 4mg/Ml Syringe IV 10/07/24 23:30 4 mg ONCE ONE Administration Ondansetron HCl 4 mg 10/07/24 23:29 10/07/24 23:36 Ondansetron 4mg/2ml Vial IV 10/07/24 23:30 4 mg ONCE ONE Administration Oxycodone HCl 2.5 mg 10/08/24 02:10 10/08/24 02:12 Oxycodone 5mg Immediate Release Tablet PO 10/08/24 02:11 2.5 mg ONCE ONE Administration Tamsulosin HCl 0.4 mg 10/08/24 02:15 10/08/24 02:11 Tamsulosin 0.4mg Capsule PO 10/08/24 02:16 0.4 mg ONCE ONE Administration ORDERS Category Date Time Status CT abdomen pelvis w con Stat Cat Scan 10/08/24 00:00 Completed CBC w/Auto Diff [Complete Blood Count Auto Diff] Stat Lab 10/07/24 22:31 Completed CMP [Comprehensive Metabolic Panel] Stat Lab 10/07/24 22:31 Completed HIV Combo Stat Lab 10/07/24 22:31 Completed Hepatitis C Ab Qual. W/ RFX Stat Lab 10/07/24 22:31 Completed PT INR [Prothrombin Time INR] Stat Lab 10/07/24 22:31 Completed Urinalysis and Microscopic Stat Lab 10/08/24 00:55 Completed Medical Decision Narrative: In summary, this 53-year-old male with comorbidities described in the HPI presents to the emergency department today with right flank pain. On initial evaluation patient is hemodynamically stable, afebrile, positive right CVA tenderness, no reproducible abdominal pain on exam, remainder of exam benign. Differential diagnosis includes but is not limited to urinary tract infection, hydronephrosis, pyelonephritis, ureterolithiasis, nephrolithiasis, kidney dysfunction, among others. Based on these concerns, I ordered serum labs, CT imaging, urine studies. Patient received IV fluids, Toradol, morphine, Zofran for treatment. Labs personally reviewed demonstrate no leukocytosis or anemia, platelets normal, PT/INR normal, CMP nonactionable with good kidney function, UA negative for findings of infection no blood is present. This could be related to kidney stone. CT abdomen pelvis personally interpreted demonstrates right ureterolithiasis with hydronephrosis. See radiology read for final interpretation which also comments on small right adrenal adenoma. This adrenal adenoma has been previously visualized on the CT abdomen pelvis from 2021. On reassessment patient's pain is well-controlled and he is resting comfortably. Tamsulosin administered. I believe he is appropriate for discharge. He has seen Dr. Krueger in the past so I placed a referral back to him for close outpatient follow-up. I prescribed Zofran, tamsulosin, [place] for outpatient management. Since the patient does not have pain medications at home, he did receive low-dose oxycodone prior to discharge to keep him comfortable through the night until he is able to mixing picker tender prescriptions at the pharmacy. He was encouraged to drink plenty of fluids and urinate through a strainer to capture the stone if it passes. He was given strict instructions on follow-up with urology and primary care for both the stone and adrenal adenoma, as well as strict return precautions for the ER. He indicated understanding and the patient was discharged in stable condition. Critical Care Critical Care Time Critical Care Time: No
== END 2024-10-08 02:22 | disposition home or self-care (01) ==
PROVIDERS: Emergency Medicine; Emergency Provider Emergency Medicine; PCP Family Medicine
DX: N13.0 Hydronephrosis with ureteropelvic junction obstruction (principal); R10.31 Right lower quadrant pain; R11.0 Nausea; F17.210 Nicotine dependence, cigarettes, uncomplicated; Z11.59 Encounter for screening for other viral diseases; Z11.4 Encounter for screening for human immunodeficiency virus [HIV]
CPT/HCPCS: 74177; 80053; 81001; 85025; 85610; 86803; 87389; 96361; 96374; 96375; 99285; J1885; J2270; J2405; J7120; Q9967

== ENCOUNTER 2024-11-02 06:08 | Emergency (ER) | payer BC, SELFPAY ==
--- OUTSIDE RECORDS SUMMARY | 2024-04-19 11:00 | XMS_ITS ---
Author Organization [facility] Address [address] [facility] [address] [place] [id number] Care Team Providers Care Angle Roll Operator Name Role Phone Bulmaro Ramos Primary Care Provider Allergies No Known Allergies REASON FOR VISIT 6 month check Medications Medication SIG (Take, Route, Frequency, Duration) Notes Start Date End Date Status AutoPAP - 10/21 as directed as directed 11/23/2022 Active Wegovy 2.4 MG/0.75ML 0.75 mL Subcutaneou s once weekly Active Irbesartan 300 MG 1 tablet Orally Once a day; Duration: 90 days Active Vitamin D3 1.25 MG (68011 UT) 1 capsule Orally once weekly 07/31/2023 Active Social History Tobacco Use: Social History Observation Description Date Smoking Status WARNING: Information temporarily unavailable CURRENT TOBACCO USE: Question Answer Notes Are you a: Stopped smoking August 2019. Smoked for 27 years, 2-2 1/2 ppd average Vital Signs Blood pressure systolic 138 mm Hg 04/19/20 24 Blood pressure diastolic 90 mm Hg 024 Heart Rate 91 /min 04/19/2024 Height 69 in 04/19/2024 Weight 291.6 lbs 04/19/2024 BMI 43.06 kg/m2 04/19/2024 Encounters Encounter Location Date Provider Diagnosis [place] [address] [place] [id number] 04/19/2024 Bulmaro Ramos Essential hypertensi on I10 ; Morbid obesity E66.01 and Sleep apnea, unspecified type G47.30 Assessments Encounter Date Diagnosis (ICD Code) Assessment Notes Treatment Notes Treatment Clinical Notes Section Notes 04/19/2024 Essential hypertension (ICD-10 - I10) 04/19/2024 Morbid obesity (ICD-10 - E66.01) 04/19/2024 Sleep apnea, unspecified type (ICD-10 - G47.30) Patient is doing well with CPAP and should continue using it every time he sleeps Plan Of Treatment Medication Medication Name Sig Start Date Stop Date Notes Wegovy 2.4 MG/0.75ML 0.75 mL Subcutaneous once weekly Irbesartan 300 MG 1 tablet Orally Once a day; Duration: 90 days Treatment Notes Assessment Notes Sleep apnea, unspecified type Patient is doing well with CPAP and should continue using it every time he sleeps Next Appt Details Follow Up: 6 Months fasting, Reason: Provider Name:Bulmaro George , 11/11/2024 09:30:00 AM, [address], [place], [place], [id number], Progress Notes * CALEB RAMIREZHAILEY CHAMBERLAINDOB:[birth year] (53 yo M)Acc No.[id number]:04/19/2024 Progress Notes Patient: SHANIA TANG BULMARO Provider: Nuzhat Ramos M.D. :1970 A ge:53 Y S ex:Male Date:04/19/2024 Address:[address] [place], [place] [id number] Subjective: * Chief Complaints: * 1 . 6 month check. * HPI: H PI: 53 year old male presents with c/o Patient is here today for?Pt is here today for a 6 month check up. Pt sts he is doing well and has no new concerns or complaints at this time. * ROS: D ERMATOLOGY: no R marva. n o H ej. G ASTROENTEROLOGY: no N ausea. n o V omiting. U ROLOGY: no D ifficulty urinating. n o B lood in urine. * Medical History: A llergic Rhinitis, Tobacco Abuse, Sleep Apnea, Hypertension, Vitamin B 12 deficiency, Vitamin D deficiency. * Surgical History: U mbilical Hernia Repair 2006. * Hospitalization/Major Diagno stic Procedure: Adry vargas [facility] ER 04/18/2022. * Family History: F ather: alive. M other: alive. P aternal Grand Father: . P aternal Grand Mother: alive. M aternal Grand Father: . M aternal Grand Mother: , diagnosed with Heart Disease. 1 sister(s) - healthy. 2 daughter(s) - healthy. . * Social History: C URRENT TOBACCO USE: Yes A re you a: Stopped smoking August 2019. Smoked for 27 years, 2-2 1/2 ppd average. C affeine: yes, frequency: coffee - 4 to 6 cups a day. Home smoke detector use: yes. Marital Status: Single. Past smoking status: previous history. Alcohol: No. * Medications: T pelong AutoPAP - - 10/21 as directed as directed , Taking Vitamin D3 1.25 MG (49154 UT) Capsule 1 capsule Orally once weekly , Taking Wegovy 2.4 MG/0.75ML Solution Auto-injector 0.75 mL Subcutaneous once weekly , Taking Irbesartan 300 MG Tablet 1 tablet Orally Once a day , Medication List reviewed and reconciled with the patient * Allergies: N .K.D.A. Objective: * Vitals: W t:291.6, Temp:98.6, BP:138/90, HR:91, Nurse:FRANKLIN, Ht: 69, BMI:43.06. * Examination: C ardiology: General Appearance: p leasant, NAD. H EENT: u nremarkable. H eart sounds: R RR, normal S1, S2. L ungs: c lear, no rales or wheezes.?Extremities: n o leg edema. Assessment: * Assessment: 1. E ssential hypertension - I10 (Primary) 2 . M orbid obesity - E66.01? 3. S leep apnea, unspecified type - G47.30 Plan: * Treatment: 2. M orbid obesity Continue Wegovy Solution Auto-injector, 2.4 MG/0.75ML, 0.75 mL, Subcutaneous, once weekly. ? 3. S leep apnea, unspecified type Notes: Patient is doing well with CPAP and should continue using it every time he sleeps * Follow Up: 6 Months fasting * Images: Billing Information: * Visit Code: 81022 Office Visit, Est Pt., Level 3. * Procedure Codes: * Electronic signature of Sandy Ramos MD on 11/02/2024 at 06:13 AM EDT Sign off status: Pending * Provider: Nuzhat Ramos M.D. Date: 06/20/2023 Generated for Antwan rodriguez/Thomas/eTransmitting on: 0 11/02/2024 06:13 AM EDT History and Physical Notes * HPI (History of Present Illness) Category Sub-Category Detail Notes Category Not es HPI Patient is here today for Pt is here today for a 6 month check up. Pt sts he is doing well and has no new concerns or complaints at this time Examination Category Sub-Category Detail Notes Category Not es Cardiology Lungs: clear, no rales or wheezes HEENT: unremarkable Heart sounds: RRR, normal S1, S2 Extremities: no leg edema General Appearance: pleasant, NAD
--- OUTSIDE RECORDS SUMMARY | 2024-10-09 10:15 | XMS_ITS ---
Author Organization [facility] Address [address] [facility] [address] [place] [id number] Care Team Providers Care Wood Inspector Name Role Phone James Ramos Primary Care Provider Allergies No Known Allergies Results Component Value Reference Range Notes CBC Fingerstick (in house) Reviewed date:10/09/2024 10:34:34 PM Interpretation: Performing Lab: Notes/Report: wbc 6.7 3.5 - 10 lym 25.7% 15 - 50 mid 6.5% 2 - 15 gran 67.8% 35 - 80 rbc 5.13 3.5 - 5.5 hgb 16.4 11.5 - 16.5 hct 47.5 35 - 55 mcv 92.5 75 - 100 mch 31.9 25 - 35 mchc 34.5 31 - 38 plat 141 100 - 400 REASON FOR VISIT f/u ER Medications Medication SIG (Take, Route, Frequency, Duration) Notes Start Date End Date Status Tadalafil 2.5 MG 1 tablet Orally Once a day; Duration: 30 days 10/09/2024 Active Wegovy 2.4 MG/0.75ML INJECT 2.4 MG (0.75 ML) SUBCUTANEOUSLY ONCE WEEKLY; Duration: 28 Active Vitamin D3 1.25 MG (30466 UT) 1 capsule Orally once weekly 07/31/2023 Active Irbesartan 300 MG 1 tablet Orally Once a day; Duration: 90 days Active AutoPAP - 6 as directed as directed 11/23/2022 Active Tamsulosin HCl 0.4 MG 1 capsule Orally Once a day Active Ondansetron 4 MG 1 tablet on the tong ue and allow to dissolve Orally Once a day Active HYDROcodone-Acetaminophen 5-325 MG 1 tablet as needed Orally every 6 hrs Active Social History Tobacco Use: Social History Observation Description Date Smoking Status WARNING: Information temporarily unavailable CURRENT TOBACCO USE: Question Answer Notes Are you a: Stopped smoking August 2019. Smoked for 27 years, 2-2 1/2 ppd average Problems Problem Type SNOMED Code ICD Code Onset Dates Problem Status W/U Status Risk Notes Problem Kidney stone (16970167) Kidney stone on right side (N20.0) Active confirmed Problem Erectile dysfunction (disorder) (162398091) Erectile dysfunction, unspecified erectile dysfunction type (N52.9) Active confirmed Vital Signs Blood pressure systolic 144 mm Hg 10/10/19 25 Blood pressure diastolic 90 mm Hg 025 Heart Rate 53 /min 10/09/2024 Height 69 in 10/09/2024 Weight 283 lbs 10/09/2024 BMI 41.79 kg/m2 10/09/2024 Encounters Encounter Location Date Provider Diagnosis [facility] [address] [facility] [address] [place], [place] [id number] 10/09/2024 James Sagola Kidney stone on righ t side N20.0 ; Acute right flank pain R10.9 ; Nasal congestion R09.81 and Erectile dysfunction, unspecified erectile dysfunction type N52.9 Assessments Encounter Date Diagnosis (ICD Code) Assessment Notes Treatment Notes Treatment Clinical Notes Section Notes 10/09/2024 Kidney stone on right side (ICD-10 - N20.0) Patient has appt. with Urology on 10/14/24 10/09/2024 Acute right flank pain (ICD-10 - R10.9) ER record including notes, labs and radiology reports reviewed in office today 10/09/2024 Nasal congestion (ICD-10 - R09.81) OTC nasal steroid and antihistamine of choice 10/09/2024 Erectile dysfunction, unspecified erectile dysfunction type (ICD-10 - N52.9) Plan Of Treatment Medication Medication Name Sig Start Date Stop Date Notes Tadalafil 2.5 MG 1 tablet Orally Once a day; Duration: 30 days 10/09/2024 Treatment Notes Assessment Notes Kidney stone on right side Patient has a ppt. with Urology on 10/14/24 Acute right flank pain ER record includi ng notes, labs and radiology reports reviewed in office today Nasal congestion OTC nasal steroid an d antihistamine of choice Next Appt Details Follow Up: via phone to repo rt progress,4 Weeks, Reason: Provider Name:James George ry, 11/11/2024 09:30:00 AM, [address], [address], [place], [place], [id number], Progress Notes * SHANIA RAMIREZDOB:[birth year] (53 yo M)Acc No.[id number]:10/09/2024 Progress Notes Patient: SHANIA TANG Provider: Nuzhat Ramos M.D. :1970 A ge:53 Y S ex:Male Date:10/09/2024 Address:[address] [place], [place] [id number] Subjective: * Chief Complaints: * 1 . f/u ER. * HPI: H PI: 53 year old male presents with c/o Here for follow up on: 0 10/07/2024 [facility] er visit. Pt went to er for rt flank pain, pt dx with 6mm kidney stone on rt side. Pt states pain has started to improve but he has not yet pass stone. * ROS: D ERMATOLOGY: no R marva. n o H ej. E NT: Positive for n maria e congestion. M DURGA REPRODUCTIVE: Difficulty with erection y es. G ASTROENTEROLOGY: no N ausea. n o V omiting. U ROLOGY: no D ifficulty urinating. n o B lood in urine. * Medical History: A llergic Rhinitis, Tobacco Abuse, Sleep Apnea, Hypertension, Vitamin B 12 deficiency, Vitamin D deficiency, Kidney stones. * Surgical History: U mbilical Hernia Repair 2006. * Hospitalization/Major Diagno stic Procedure: K idney Stones- [facility] ER 04/18/2022. * Family History: F ather: [...] previous history. Alcohol: No. * Medications: T aking Ondansetron 4 MG Tablet Disintegrating 1 tablet on the tongue and allow to dissolve Orally Once a day , Taking HYDROcodone-Acetaminophen 5-325 MG Tablet 1 tablet as needed Orally every 6 hrs , Taking Tamsulosin HCl 0.4 MG Capsule 1 capsule Orally Once a day , Taking AutoPAP - - 10/21 as directed as directed , Taking Vitamin D3 1.25 MG (40839 UT) Capsule 1 capsule Orally once weekly , Taking Irbesartan 300 MG Tablet 1 tablet Orally Once a day , Taking Wegovy 2.4 MG/0.75ML Solution Auto-injector INJECT 2.4 MG (0.75 ML) SUBCUTANEOUSLY ONCE WEEKLY , Medication List reviewed and reconciled with the patient * Allergies: N .K.D.A. Objective: * Vitals: W t: 283, Temp: 98.1, BP: 144/90, HR: 53, Nurse: wil, Ht: 69, BMI:41.79. * Examination: G eneral Examination: General Appearance: N AD. O ral cavity: n o lesions, mucosa moist and WNL, no erythema. N velvet: s upple, no lymphadenopathy. H eart: R SR. L ungs: c lear to auscultation. Assessment: * Assessment: 1. K idney stone on right side - N20.0 (Primary) 2 . A cute right flank pain - R10.9 3 . N maria e congestion - R09.81 4 . E rectile dysfunction, unspecified erectile dysfunction type - N52.9 Plan: * Treatment: 2. A cute right flank pain Notes: ER record including notes, labs and radiology reports reviewed in office today 3. N maria e congestion L AB: CBC Fingerstick (in house) (Collection Date & Time - 10/09/2024) Value Reference Range w bc 6.7 3.5 - 10 * l ym 25.7% 15 - 50 * m id 6.5% 2 - 15 * g ran 67.8% 35 - 80 * r bc 5.13 3.5 - 5.5 * h gb 16.4 11.5 - 16.5 * h ct 47.5 35 - 55 * m cv 92.5 75 - 100 * m ch 31.9 25 - 35 * m chc 34.5 31 - 38 * p lat 141 100 - 400 * Nadege Angel 10/09/2024 02:43:1 3 PM EDT > Provider reviewed results while patient in office.James Ramos 10/09/2024 10:34:28 PM EDT > Notes: OTC nasal steroid and antihistamine of choice??4.?Erectile dysfunction, unspecified erectile dysfunction type? Start Tadalafil Tablet, 2.5 MG, 1 tablet, Orally, Once a day, 30 days, 30, Refills 5.?? * Procedure Codes: 3 6416 CAPILLARY BLOOD DRAW, 75849 CBC WITH AUTO DIFF * Follow Up: v ia phone to report progress,4 Weeks * Images: Billing Information: * Visit Code: 47044 Office Visit, Est Pt., Level 4. * Procedure Codes: 51651 CAPILLARY BLOOD DRAW. 09011 CBC WITH AUTO DIFF. * Electronic signature of Sandy Ramos MD on 11/02/2024 at 06:14 AM EDT Sign off status: Pending * Provider: Nuzhat Ramos M.D. Date: 0 10/09/2024 Generated for Antwan rodriguez/Thomas/eTransmitting on: 11/02/2024 06:14 AM EDT History and Physical Notes * HPI (History of Present Illness) Category Sub-Category Detail Notes Category Not es HPI Here for follow up on: 5 [facility] er visit. Pt went to er for rt flank pain, pt dx with 6mm kidney stone on rt side. Pt states pain has started to improve but he has not yet pass stone Examination Category Sub-Category Detail Notes Category Not es General Examination Heart: RSR Lungs: clear to auscultatio n General Appearance: NAD Neck: supple, no lymphaden opathy Oral cavity: no lesions, mucosa m oist and WNL, no erythema
--- OUTSIDE RECORDS SUMMARY | 2024-10-18 05:30 | XMS_ITS ---
Author Organization [facility] Address [address] [facility] [address] [place] [id number] Care Team Providers Care Auto Body Repair Estimator Name Role Phone Bulmaro Ramos Primary Care Provider REASON FOR VISIT 6 month f/u; fasting bloodwork Encounters Encounter Location Date Provider Diagnosis [facility] [address] [place] [phone] 10/18/2024 Bulmaro Ramos Plan Of Treatment Next Appt Details Provider Name:Bulmaro George ry, 11/11/2024 09:30:00 AM, [address], [address], [place], [phone], Progress Notes * KAYLANSHANIA SAMUELS BULMARODOB:[birth year] (53 yo M)Acc No.[id number]:10/18/2024 Progress Notes Patient: SHANIA TANG Provider: Nuzhat Ramos M.D. :1970 A ge:53 Y S ex:Male Date:10/18/2024 Address:[facility] Subjective: * Chief Complaints: * 1 . 6 month f/u; fasting bloodwork. * Medical History: Objective: * Vitals: Assessment: Plan: * Treatment: * Images: Billing Information: * Visit Code: * Procedure Codes: * Electronic signature of Sandy Ramos MD on 11/02/2024 at 06:14 AM EDT Sign off status: Pending * Provider: Nuzhat Ramos M.D. Date: 0 10/18/2024 Generated for Antwan rodriguez/Thomas/Martell on: 0 11/02/2024 06:14 AM EDT
[2024-11-02] VITALS (10 sets, daily range): BP systolic 131–153; BP diastolic 81–88; PULSE 55–75; RESP 18–19; TEMP 37.1; O2SAT 93–98; BMI 40.6
--- OUTSIDE RECORDS SUMMARY | 2024-11-02 06:14 | XMS_ITS | Data Portability ---
Author Organization [facility] Address [address] [facility] [address] [place] [address] Assessment Encounter Date Assessment Date Assessment LastModified by Organization Details LastModified Time 09/25/2017 09/25/2017 SURGERY DATE: 09/25/2017 PREOPERATIVE DIAGNOSIS: Right proximal ureteral stone. POSTOPERATIVE DIAGNOSIS: Right proximal ureteral stone. PROCEDURE: Right ureteroscopy, laser lithotripsy and stone extraction with right stent placement. ANESTHESIA: General. COMPLICATIONS: None. CONDITION: Stable. SURGEON: Hong Shafer MD INDICATIONS: This is a 46-year-old white [...] draped in the standard surgical fashion. A 21-Danish cystoscope passed into the urethra and into [...] stone into small fragments and a 2.4 Danish Nitinol stone basket then used to basket the larger fragments out. After all the significant stones were removed, the ureteroscope was removed and there was no injury to the ureter. We replaced our cystoscope and back loaded the wire over the scope and passed a 4.8 x 26 Danish stent. The wire was removed and a [...] nidus Not observ ed normal Not Available [facility] [address] [place], [address], 09/28/2017 17:05:32 09/26/19 18 09/28/2017 kidne y stone yulia sis composition See Below normal Calci um Oxala te Dihyd rate (Wedd ellit e) 60% Calci um Oxala te Monoh ydrat e (Whew ellit e) 20% Carbo vini Apati te (Dahl lite) 20% Not Available [facility] [address] [place], [address], 09/28/2017 17:05:32 09/26/19 18 09/28/2017 kidne y stone yulia sis weight 0.0140 g normal This test was devel oped and its yulia tical perfo rmanc e clarence cteri stics have been deter mined by [facility] ostmariely s Rashid Newmani aysha Ramos cia. It has not been clear ed or appro phuong by the [place] Food and Drug Admin istra tion. This assay has been valid ated pursu ant to the CLIA regul ation s and is used for clini rita purpo ses. TEST PERFO RMED AT: [facility] [address] [place] [address] Rahat URBANO,PHD Not Available [facility] [address] [place] [address], [address], 09/28/2017 17:05:32 Result Notes None recorded. Medical Equipment None Reported. Medications Name Sig Start Date Stop Date Status Note LastModified by Organization Details LastModified Time Keflex 500 mg capsule Take 1 capsule every 6 hours by oral route. 018 active Not Available Not Available Not Avai lable [place] 5 mg-325 mg tablet Take 1 tablet [...] SNOMED-CT Code Diagnosis ICD10 Code Diagnosis Note [id number] HONG SHAFER MD SURGERY SCHEDULE [address] [place] [address] 09/25/2017 14:16:59 09/25/2017 14:17:42 Health Concerns Section Related Observation LastModified by Organization Detai ls LastModified Time None Recorded Concern Status LastModified by Organization Details LastModified Time None Recorded Advance Directives Directive None Recorded Payers Insurance Date Sequence Insurance Name Policy Number Policy Winter Covered Member ID Winter Member ID Guarantor Name 04/01/2020 1 [employer] [id number] Howard Peacock [id number] James Peacock
--- OUTSIDE RECORDS SUMMARY | 2024-11-02 06:14 | XMS_ITS | Clinical Summary ---
Author Organization [facility] Address [address] [place] [address] Care Team Providers Care Cranberry Grower Name Role Phone Augustine Mckenzie MD Primary Care Provider Social History Tobacco Use Types Packs/Day Years Used Date Smoking Tobacco: Never Assessed Sex and Gender Information Value Date Recorded Sex Assigned at Not on file Legal Sex Male 11:22 PM EDT Gender Identity Not on file Sexual Orientation Not on file Plan of Treatment Health Maintenance Due Date Last Done Comments DTap,Tdap,and Td (1 - Tdap) 11/19/1983 Colonoscopy 2017 PSA YEARLY 2022 Pneumococcal 50+ (1 of 1 - PCV) 2022 Shingrix (#1) 2022 Influenza Vaccine (Season Ended) 2025 RSV Vaccine (60+ or ) (1 - 1-dose 75+ series) 11/19/2047 HPV Aged Out No longer eligi ble based on patient's age to complete this topic Meningococcal conjugate leander nt 4 (MCV4) Aged Out No longer eligible b ased on patient's age to complete this topic RSV Immunization (<20 months) Aged Out No longer eligible based on patient's age to complete this topic Care Teams Cranberry Grower Relationship Specialty Start Date End Date Augustine Mckenzie MD PCP - General 06/02/14
--- OUTSIDE RECORDS SUMMARY | 2024-11-02 06:14 | XMS_ITS | Patient Health Record ---
Author Organization [facility] Address [address] [id number] Care Team Providers Care Escalator Constructor Name Role Phone James Ramos Primary Care Provider [phone] Allergies No Known Allergies Results Component Value [...] - 38 plat 141 100 - 400 Reason For Referral No Information Medications Medication SIG (Take, Route, Frequency, Duration) Notes Start Date End Date Status Tadalafil 2.5 MG 1 tablet Orally Once a day; Duration: 30 days 10/09/2024 Active Wegovy 2.4 MG/0.75ML INJECT 2.4 MG (0.75 ML) SUBCUTANEOUSLY ONCE WEEKLY; Duration: 28 Active Vitamin D3 1.25 MG (28963 UT) 1 capsule Orally once weekly 07/31/2023 Active Irbesartan 300 MG 1 tablet Orally Once a day; Duration: 90 days Active Tamsulosin HCl 0.4 MG 1 capsule Orally Once a day Active AutoPAP - 10/21 as directed as directed 11/23/2022 Active Ondansetron 4 MG 1 tablet on the tong ue and allow to dissolve Orally Once a day Active HYDROcodone-Acetaminophen 5-325 MG 1 tablet as needed Orally every 6 hrs Active Immunizations Vaccine Route Administration Date Status Comme nts Fluzone Quad (6months&older) Unknown 03/22/2023 Pending Social History Tobacco Use: Social History Observation Description Date Smoking Status WARNING: Information temporarily unavailable CURRENT TOBACCO USE: Question Answer Notes Are you a: Stopped smoking August 2019. Smoked for 27 years, 2-2 1/2 ppd average Problems Problem Type SNOMED Code ICD Code Onset Dates Problem Status W/U Status Risk Notes Problem Vitamin D deficiency (20229053) Vitamin D deficiency (E55.9) Active confirmed Problem Vitamin B12 deficiency (514870342) Vitamin B12 deficiency (E53.8) Active confirmed Problem Essential hypertension (33303864) Essential hypertension (I10) Active confirmed Problem Morbid obesity (773161392) Morbid obesity (E66.01) Active confirmed Problem Hypertriglyceridemia (064673788) Hypertriglyceridemia (E78.1) Active confirmed Problem Sciatic nerve lesion (797580284) Piriformis syndrome of right side (G57.01) Active confirmed Problem Erectile dysfunction (disorder) (636608908) Erectile dysfunction, unspecified erectile dysfunction type (N52.9) Active confirmed Problem Morbid obesity (027825032) Morbid obesity due to excess calories (E66.01) Active confirmed Problem Sleep apnea (90111954) Sleep apnea, unspecified type (G47.30) Active confirmed Problem Kidney stone (23660455) Kidney stone on right side (N20.0) Active confirmed Problem Tobacco user (574534061) Cigarette nicotine dependence without complication (F17.210) Active confirmed Problem Pure hypercholesterolemia (074156633) Pure hypercholesterolemia (E78.00) Active confirmed Problem Primary hypertension (07690284) Primary hypertension (I10) Active confirmed Vital Signs Heart Rate 53 /min 10/09/2024 Blood pressure diastolic 90 mm Hg 10/09/2024 Height 69 in 10/09/2024 Blood pressure systolic 144 mm Hg 10/09/2024 Weight 283 lbs 10/09/2024 BMI 41.79 kg/m2 10/09/2024 Encounters Encounter Location Date Provider Diagnosis [facility] [address] [facility] [address] [place], [place] [id number] 04/19/2024 James Ramos Essential hypertensi on I10 ; Morbid obesity E66.01 and Sleep apnea, unspecified type G47.30 [facility] [address] [place] [id number] 10/09/2024 James Ramos Kidney stone on righ t side N20.0 ; Acute right flank pain R10.9 ; Nasal congestion R09.81 and Erectile dysfunction, unspecified erectile dysfunction type N52.9 [facility] [address] [place] [id number] 01/04/2024 James Ramos Morbid obesity due t o excess calories E66.01 [facility] [address] [place] [id number] 01/11/2024 James Ramos [facility] [address] [facility] [address] [place] [id number] 10/21/2024 James Ramos Assessments Encounter Date Diagnosis (ICD Code) Assessment Notes Treatment Notes Treatment Clinical Notes Section Notes 04/19/2024 Essential hypertension (ICD-10 - I10) 04/19/2024 Morbid obesity (ICD-10 - E66.01) 10/09/2024 Kidney stone on right side (ICD-10 - N20.0) Patient has appt. with Urology on 10/14/24 10/09/2024 Acute right flank pain (ICD-10 - R10.9) ER record including notes, labs and radiology reports reviewed in office today 01/04/2024 Morbid obesity due to excess calories (ICD-10 - E66.01) 10/09/2024 Nasal congestion (ICD-10 - R09.81) OTC nasal steroid and antihistamine of choice 04/19/2024 Sleep apnea, unspecified type (ICD-10 - G47.30) Patient is doing well with CPAP and should continue using it every time he sleeps 10/09/2024 Erectile dysfunction, unspecified erectile dysfunction type (ICD-10 - N52.9) Plan Of Treatment Pending Test Test Name Order Date colonoscopy 10/20/2023 Next Appt Details Provider Name:James George ervin, 11/11/2024 09:30:00 AM, [address], [place], [id number], Insurance Providers Payer Name Payer Address Payer Phone Subscriber Number Group Number Insured Name Patient Relationship to Insured Coverage Start Date Coverage End Date [facility] [address] [place] [address] [id number] JUSTIN Self - patient is the insured Medical (General) History Medical History History ICD Code Allergic Rhinitis Tobacco Abuse Sleep Apnea Hypertension Vitamin B 12 deficiency Vitamin D deficiency kidney stones Surgical History Surgery Date(Month/Year) Umbilical Hernia Repair 2006 Hospitalization History Reason Date(Month/Year) Kidney Stones- [facility] ER 04/18/2022
--- OUTSIDE RECORDS SUMMARY | 2024-11-02 06:14 | XMS_ITS | Referral Summary ---
Author Organization [facility] Address [address] [place] [address] Care Team Providers Care Race And Sports Book Writer Name Role Phone Augustine Mckenzie MD Primary Care Provider [phone] Social History Tobacco Use Types Packs/Day Years Used Date Smoking Tobacco: Never Assessed Sex and Gender Information Value Date Recorded Sex Assigned at Not on file Legal Sex Male 11:22 PM EDT Gender Identity Not on file Sexual Orientation Not on file Plan of Treatment Not on file Care Teams Race And Sports Book Writer Relationship Specialty Start Date End Date Augustine Mckenzie MD PCP - General 06/02/14
--- NOTE | 2024-11-02 06:30 | CT_ITS ---
PROCEDURE INFORMATION: Exam: CT Abdomen And Pelvis With Contrast Exam date and time: 11/02/2024 7:11 AM Age: 53 years old Clinical indication: Abdominal pain; Flank; Right; Additional info: Right flank pain, HX stones TECHNIQUE: Imaging protocol: Computed tomography of the abdomen and pelvis with contrast. Radiation optimization: All CT scans at this facility use at least one of these dose optimization techniques: automated exposure control; mA and/or kV adjustment per patient size (includes targeted exams where dose is matched to clinical indication); or iterative reconstruction. Contrast material: ISOVUE; Contrast volume: 75 ml; Contrast route: IV; COMPARISON: CT ABDOMEN PELVIS W CON 10/08/2024 12:25 AM FINDINGS: Liver: Normal. No mass. Gallbladder and biliary ducts: Normal. No calcified stones. No ductal dilation. Pancreas: Normal. No ductal dilation. Spleen: Normal. No splenomegaly. Adrenal glands: Normal. No mass. Kidneys and ureters: 9 mm stone in the mid right ureter with moderate to high-grade right-sided hydronephrosis hydroureter and delayed enhancement of the right kidney compared to the left kidney. Stomach and bowel: Unremarkable. No obstruction. No mucosal thickening. Appendix: No evidence of appendicitis. Intraperitoneal space: Unremarkable. No free air. No significant fluid collection. Vasculature: Unremarkable. No abdominal aortic aneurysm. Lymph nodes: Unremarkable. No enlarged lymph nodes. Urinary bladder: Unremarkable as visualized. Reproductive: Unremarkable as visualized. Bones/joints: Unremarkable. No acute fracture. Soft tissues: Unremarkable. IMPRESSION: 9 mm stone in the mid right ureter with moderate to high-grade right-sided hydronephrosis hydroureter and delayed enhancement of the right kidney compared to the left kidney.
--- NOTE | 2024-11-02 06:32 | HMH.EDGENADL ---
Discharge Plan Disposition Patient Disposition: Home, Self-Care Prescriptions Prescriptions: New ibuprofen 800 mg tablet 800 mg PO TID PRN (Reason: pain) 7 Days Qty: 20 0RF hydrocodone-acetaminophen 5-325 mg tablet 1 tab PO Q6H PRN (Reason: pain) 3 Days Qty: 12 0RF tamsulosin [Flomax] 0.4 mg capsule 0.4 mg PO DAILY 7 Days Qty: 7 0RF ondansetron 4 mg tablet,disintegrating 4 mg PO Q6H PRN (Reason: nausea and vomiting) 5 Days Qty: 20 0RF No Action irbesartan 300 mg Tablet 300 mg PO DAILY ondansetron 4 mg tablet,disintegrating 4 mg PO Q6H PRN (Reason: nausea and vomiting) Qty: 10 0RF hydrocodone-acetaminophen 5-325 mg tablet 1 tab PO Q6H PRN (Reason: pain) Qty: 10 0RF tamsulosin 0.4 mg capsule 0.4 mg PO HS Qty: 14 0RF Referrals Follow up/Referrals: James Ramos MD [Primary Care Provider, Medical] - See instructions Activity Restrictions/Add. Instructions Additional Instructions/Restrictions: Your symptoms today were from an obstructing 9 mm mid ureteral kidney stone with associated hydronephrosis. This is essentially not moved since your CT scan earlier this month. Therefore I spoke to Dr. Finch who is on-call for [facility] urology and the transfer center at [facility] they took your contact information and will schedule you early this week to be seen in their clinic and hopefully to have an operation scheduled to prevent 2 operations as discussed. Symptomatic medications have been sent home with you. Please return to the emergency department as discussed with refractory pain high fevers refractory nausea and vomiting or other symptoms. Clinical Impressions Clinical Impression: Hydronephrosis with obstructing calculus Instructions Patient Instructions: DI for Urinary Tract Infection (UTI), DI for Urinary Tract Infection in Children Print Language Print Language: Haitian Discharge ED Provider: Jeremy Jordan General Adult HPI <Jeremy Jordan MD - Last Filed: 11/02/24 06:52> General Chief complaint: Urogenital-Male Stated complaint: kidney stone Time Seen by Provider: 11/02/24 06:10 Mode of Arrival: Ambulatory Source of Information: Patient Description of Symptoms (Recalled from ER Triage Doc. by RN): Pt presents with right flank pain that began yesterday and progressed throughout the night. Pt was seen here 1 month ago and dx with 6mm stone, referred to michael Krueger. Pt states he never passed the stone, ran out of Flowmax ut did take a Zofran and Hydrocodone at 2am. Pt reports dysuria, no blood, pain 10/15. History of Present Illness HPI narrative: 53-year-old male with history of recurrent kidney stones presents for worsening right-sided flank pain. He was seen on 10/08 and was noted to have a 6 mm right mid ureter stone. Follow-up with his urologist, he reports that his urologist did nothing. Patient does not think he ever passed a stone and started having worsening pain and nausea this morning. Denies fever at home. Reports that he thinks the stone has moved down but has not passed. Related Data Home Medications ?Medication ?Instructions ?Recorded ?Confirmed irbesartan 300 mg tablet 300 mg PO DAILY 09/04/24 09/04/24 Previous Rx's ?Medication ?Instructions ?Recorded hydrocodone 5 mg-acetaminophen 325 1 tab PO Q6H PRN pain #10 tabs 10/08/24 mg tablet ondansetron 4 mg disintegrating 4 mg PO Q6H PRN nausea and 10/08/24 tablet vomiting #10 tabs tamsulosin 0.4 mg capsule 0.4 mg PO HS #14 caps 10/08/24 hydrocodone 5 mg-acetaminophen 325 1 tab PO Q6H PRN pain 3 days #12 11/02/24 mg tablet tabs ibuprofen 800 mg tablet 800 mg PO TID PRN pain 7 days #20 11/02/24 tabs ondansetron 4 mg disintegrating 4 mg PO Q6H PRN nausea and 11/02/24 tablet vomiting 5 days #20 tabs tamsulosin 0.4 mg capsule (Flomax) 0.4 mg PO DAILY 7 days #7 caps 11/02/24 Allergies Allergy/AdvReac Type Severity Reaction Status Date / Time No Known Allergies Allergy Verified 08/03/22 11:29 [facility] <Jeremy Jordan MD - Last Filed: 11/02/24 06:52> [facility] Disclaimer: The information contained in this section may have been updated after the patient was seen, as this information can be updated by other users. Medical History (Updated 11/02/24 @ 09:05 by Mallorie Caceres MD) History of ganglion cyst Low back pain Flu-like symptoms Kidney stone Renal colic on right side Surgical History History of hernia repair History of renal stent Family History Other No significant family history Social History Smoking Status: Current every day smoker tobacco type: cigarettes packs per day: 2 alcohol intake: never substance use type: denies use current occupational status: employed Travel in the last 8 weeks?: Inside the [place] household members: family housing: house Have you lived/traveled outside US in past 30 days?: No Contact w/someone who lives/traveled outside US past 30 days?: No Exposure to someone with infectious disease in past 14 days?: No Do you have a fever (greater than 100.4 F or 38 C)?: No Have you tested positive for COVID-19?: No Exposed to someone with COVID-19 in past 14 days?: No Do you have a sore throat?: No Do you have a cough?: No Do you have any weakness?: No Do you have any diarrhea?: No Are you experiencing any unusual bleeding?: No Do you have any muscle aches/pain?: No Do you have any abdominal pain?: Yes Are you experiencing loss of taste or smell?: No Other Medical History Have you received the Flu Vaccine for this season: No Have you received the Pneumonia Vaccine: No <Jeremy Jordan MD - Last Filed: 11/02/24 06:52> ROS Obtained: Yes All systems reviewed & no additional complaints except as documented Physical Exam <Jeremy Jordan MD - Last Filed: 11/02/24 06:52> General General appearance: alert and in no apparent distress Head Head exam: atraumatic and normocephalic Eye Eye exam: Present normal appearance, PERRL and EOMI ENT ENT exam: Present normal oropharynx and normal external ear exam Neck Neck exam: Present normal inspection and full ROM Chest Chest inspection: Present normal inspection and symmetric chest wall rise; Absent tenderness Respiratory Respiratory exam: Present normal lung sounds bilaterally; Absent respiratory distress Cardiovascular Cardiovascular exam: Present regular rate and normal rhythm Abdominal Exam Abdominal exam: Present soft; Absent distention, tenderness or guarding Extremities Exam Extremities exam: Present normal inspection; Absent edema or joint swelling Back Exam Back exam: Present normal inspection and CVA tenderness (R) Neurological Exam Neurological exam: Present alert and oriented X3; Absent motor sensory deficit Psychiatric Psychiatric exam: Present normal affect and normal mood Skin Skin exam: Present warm, dry and normal color Lymphatic Lymphatic Findings: no adenopathy Medical Decision Making <Jeremy Jordan MD - Last Filed: 11/02/24 06:52> Medical Records Medical records reviewed: Yes I reviewed the patient's medical records. Screening: Per USPSTF and CDC recommendations, given the prevalence of disease in our region, it is our hospital?s policy to screen for HIV and viral Hepatitis for all patients aged 18 and over and those with ongoing risk factors. Wander Inquiry Pt receiving controlled substance: No Wander was queried for this patient: No Vital Signs: 11/02/24 06:13 11/02/24 06:23 11/02/24 06:30 Temperature 98.7 F Temperature Source Oral Pulse Rate 73 65 Pulse Rate [Left] 75 Respiratory Rate 18 Blood Pressure 148/88 H 143/87 H Blood Pressure [Right Arm] 148/88 H Blood Pressure Mean Blood Pressure Mean [Right Arm] 108 Blood Pressure Source [Right Arm] Automatic Cuff Blood Pressure Position [Right Arm] Sitting 02 Sat by Pulse Oximetry 94 L 96 93 L Oxygen Delivery Method Room Air Room Air 11/02/24 07:19 11/02/24 07:30 11/02/24 08:00 Temperature Temperature Source Pulse Rate 72 62 60 Pulse Rate [Left] Respiratory Rate Blood Pressure 131/82 135/87 153/85 H Blood Pressure [Right Arm] Blood Pressure Mean 103 102 107 Blood Pressure Mean [Right Arm] Blood Pressure Source [Right Arm] Blood Pressure Position [Right Arm] 02 Sat by Pulse Oximetry 96 96 96 Oxygen Delivery Method Room Air Room Air Room Air 11/02/24 08:19 11/02/24 08:31 Temperature Temperature Source Pulse Rate 61 55 L Pulse Rate [Left] Respiratory Rate Blood Pressure 152/87 H 137/81 Blood Pressure [Right Arm] Blood Pressure Mean Blood Pressure Mean [Right Arm] Blood Pressure Source [Right Arm] Blood Pressure Position [Right Arm] 02 Sat by Pulse Oximetry 96 96 Oxygen Delivery Method Room Air Room Air Lab Data Lab results reviewed: Yes I reviewed the patient's lab results. Lab Results 11/02/24 06:16: WBC 9.5, RBC 5.04, Hgb 16.2, Hct 45.8, MCV 90.9, MCH 32.1 H, MCHC 35.4, RDW 12.8, Plt Count 189, MPV 9.7, Neut % (Auto) 76.8, Lymph % (Auto) 14.0, Pine % (Auto) 7.7, Eos % (Auto) 1.0, Baso % (Auto) 0.3, Neut # (Auto) 7.3, Lymph # (Auto) 1.3, Pine # (Auto) 0.7, Eos # (Auto) 0.1, Baso # (Auto) 0.0, Sodium 142, Potassium 4.4, Chloride 106, Carbon Dioxide 28, Anion Gap 12.4, BUN 13, Creatinine 0.90, Estimated Creat Clear 171, Estimated GFR 89, Est GFR ( Amer) 108, Glucose 126 H, Calcium 8.9, Total Bilirubin 0.5, AST 21, ALT 17, Alkaline Phosphatase 58, Total Protein 6.6, Albumin 4.3, Globulin 2.3, Albumin/Globulin Ratio 1.9 H 11/02/24 06:57: Urine Color Yellow, Urine Appearance Clear, Urine pH 6.5, Ur Specific [place] 1.020, Urine Protein Negative, Urine Glucose (UA) Negative, Urine Ketones Negative, Urine Blood 2+ A, Urine Nitrate Negative, Urine Bilirubin Negative, Urine Urobilinogen 0.2, Ur Leukocyte Esterase Negative, Urine RBC 10-20, Urine WBC None, Ur Squamous Epith Cells None, Amorphous Sediment 2+, Urine Bacteria None 11/02/24 06:16 11/02/24 06:16 Orders (Tests/Meds): ED MEDICATIONS Discontinued Medications Generic Name Dose Route Start Last Admin Trade Name Dhara PRN Reason Stop Dose Admin Acetaminophen 1,000 mg 11/02/24 06:33 11/02/24 06:41 Acetaminophen 500mg Tab PO 11/02/24 06:34 1,000 mg ONCE ONE Administration Iopamidol 75 ml 11/02/24 07:16 11/02/24 07:17 Iopamidol-370 (76%);100ml Bottle IV 11/02/24 07:17 75 ml ONCE ONE Administration Ketorolac Tromethamine 30 mg 11/02/24 06:32 11/02/24 06:41 Ketorolac 30mg/Ml Vial IV 11/02/24 06:33 30 mg ONCE ONE Administration Morphine Sulfate 4 mg 11/02/24 06:30 11/02/24 06:41 Morphine 4mg/Ml Syringe IV 11/02/24 06:31 4 mg ONCE ONE Administration Ondansetron HCl 4 mg 11/02/24 06:30 11/02/24 06:41 Ondansetron 4mg/2ml Vial IV 11/02/24 06:31 4 mg ONCE ONE Administration Sodium Chloride 10 ml 11/02/24 07:16 11/02/24 07:17 Sodium Chloride 0.9% 10ml Syr (Rad Only) IV 11/02/24 07:17 10 ml ONCE ONE Administration ORDERS Category Date Time Status CT abdomen pelvis w con Stat Cat Scan 11/02/24 06:30 Completed CBC w/Auto Diff [Complete Blood Count Auto Diff] Stat Lab 11/02/24 06:16 Completed CMP [Comprehensive Metabolic Panel] Stat Lab 11/02/24 06:16 Completed UA [Urinalysis and Microscopic] Stat Lab 11/02/24 06:57 Completed Medical Decision Narrative: 53-year-old male with history of recurrent kidney stones presents for recurrent flank pain on the right. History was obtained via interactive discussion with patient, chart review. On arrival, patient is [afebrile, hemodynamically stable, satting appropriately, alert, oriented x4, GCS 15], moving all extremities spontaneously. Full physical exam performed and significant for right flank tenderness Differential includes but is not limited to persistent/recurrent obstructive ureterolithiasis, pyelonephritis, appendicitis, colitis. Patient was given Tylenol Toradol morphine and Zofran for symptomatic management and correction of underlying abnormalities. Workup initiated including CMP CBC CT abdomen pelvis with IV contrast UA. Labs independently interpreted by me, no significant renal dysfunction, no significant leukocytosis. UA pending At this time care handed off to oncoming physician. <Mallorie Caceres MD - Last Filed: 11/02/24 09:05> Vital Signs: 11/02/24 06:13 11/02/24 06:23 11/02/24 06:30 Temperature 98.7 F Temperature Source Oral Pulse Rate 73 65 Pulse Rate [Left] 75 Respiratory Rate 18 Blood Pressure 148/88 H 143/87 H Blood Pressure [Right Arm] 148/88 H Blood Pressure Mean Blood Pressure Mean [Right Arm] 108 Blood Pressure Source [Right Arm] Automatic Cuff Blood Pressure Position [Right Arm] Sitting 02 Sat by Pulse Oximetry 94 L 96 93 L Oxygen Delivery Method Room Air Room Air 11/02/24 07:19 11/02/24 07:30 11/02/24 08:00 Temperature Temperature Source Pulse Rate 72 62 60 Pulse Rate [Left] Respiratory Rate Blood Pressure 131/82 135/87 153/85 H Blood Pressure [Right Arm] Blood Pressure Mean 103 102 107 Blood Pressure Mean [Right Arm] Blood Pressure Source [Right Arm] Blood Pressure Position [Right Arm] 02 Sat by Pulse Oximetry 96 96 96 Oxygen Delivery Method Room Air Room Air Room Air 11/02/24 08:19 11/02/24 08:31 Temperature Temperature Source Pulse Rate 61 55 L Pulse Rate [Left] Respiratory Rate Blood Pressure 152/87 H 137/81 Blood Pressure [Right Arm] Blood Pressure Mean Blood Pressure Mean [Right Arm] Blood Pressure Source [Right Arm] Blood Pressure Position [Right Arm] 02 Sat by Pulse Oximetry 96 96 Oxygen Delivery Method Room Air Room Air Lab Data Lab Results 11/02/24 06:16: WBC 9.5, RBC 5.04, Hgb 16.2, Hct 45.8, MCV 90.9, MCH 32.1 H, MCHC 35.4, RDW 12.8, Plt Count 189, MPV 9.7, Neut % (Auto) 76.8, Lymph % (Auto) 14.0, Pine % (Auto) 7.7, Eos % (Auto) 1.0, Baso % (Auto) 0.3, Neut # (Auto) 7.3, Lymph # (Auto) 1.3, Pine # (Auto) 0.7, Eos # (Auto) 0.1, Baso # (Auto) 0.0, Sodium 142, Potassium 4.4, Chloride 106, Carbon Dioxide 28, Anion Gap 12.4, BUN 13, Creatinine 0.90, Estimated Creat Clear 171, Estimated GFR 89, Est GFR ( Amer) 108, Glucose 126 H, Calcium 8.9, Total Bilirubin 0.5, AST 21, ALT 17, Alkaline Phosphatase 58, Total Protein 6.6, Albumin 4.3, Globulin 2.3, Albumin/Globulin Ratio 1.9 H 11/02/24 06:57: Urine Color Yellow, Urine Appearance Clear, Urine pH 6.5, Ur Specific [place] 1.020, Urine Protein Negative, Urine Glucose (UA) Negative, Urine Ketones Negative, Urine Blood 2+ A, Urine Nitrate Negative, Urine Bilirubin Negative, Urine Urobilinogen 0.2, Ur Leukocyte Esterase Negative, Urine RBC 10-20, Urine WBC None, Ur Squamous Epith Cells None, Amorphous Sediment 2+, Urine Bacteria None Orders (Tests/Meds): ED MEDICATIONS Discontinued Medications Generic Name Dose Route Start Last Admin Trade Name Freq PRN Reason Stop Dose Admin Acetaminophen 1,000 mg 11/02/24 06:33 11/02/24 06:41 Acetaminophen 500mg Tab PO 11/02/24 06:34 1,000 mg ONCE ONE Administration Iopamidol 75 ml 11/02/24 07:16 11/02/24 07:17 Iopamidol-370 (76%);100ml Bottle IV 11/02/24 07:17 75 ml ONCE ONE Administration Ketorolac Tromethamine 30 mg 11/02/24 06:32 11/02/24 06:41 Ketorolac 30mg/Ml Vial IV 11/02/24 06:33 30 mg ONCE ONE Administration Morphine Sulfate 4 mg 11/02/24 06:30 11/02/24 06:41 Morphine 4mg/Ml Syringe IV 11/02/24 06:31 4 mg ONCE ONE Administration Ondansetron HCl 4 mg 11/02/24 06:30 11/02/24 06:41 Ondansetron 4mg/2ml Vial IV 11/02/24 06:31 4 mg ONCE ONE Administration Sodium Chloride 10 ml 11/02/24 07:16 11/02/24 07:17 Sodium Chloride 0.9% 10ml Syr (Rad Only) IV 11/02/24 07:17 10 ml ONCE ONE Administration ORDERS Category Date Time Status CT abdomen pelvis w con Stat Cat Scan 11/02/24 06:30 Completed CBC w/Auto Diff [Complete Blood Count Auto Diff] Stat Lab 11/02/24 06:16 Completed CMP [Comprehensive Metabolic Panel] Stat Lab 11/02/24 06:16 Completed UA [Urinalysis and Microscopic] Stat Lab 06/28/25 06:57 Completed Medical Decision Narrative: 53-year-old male with history of recurrent kidney stones presents for recurrent flank pain on the right. History was obtained via interactive discussion with patient, chart review. On arrival, patient is [afebrile, hemodynamically stable, satting appropriately, alert, oriented x4, GCS 15], moving all extremities spontaneously. Full physical exam performed and significant for right flank tenderness Differential includes but is not limited to persistent/recurrent obstructive ureterolithiasis, pyelonephritis, appendicitis, colitis. Patient was given Tylenol Toradol morphine and Zofran for symptomatic management and correction of underlying abnormalities. Workup initiated including CMP CBC CT abdomen pelvis with IV contrast UA. Labs independently interpreted by me, no significant renal dysfunction, no significant leukocytosis. UA pending At this time care handed off to oncoming physician. Reassessment this is Dr. Caceres I took over from Dr. Jordan at [address] scan was performed which I personally interpreted which shows a 8 to 9 mm stone in the mid ureter and in comparison with the recent CT scan earlier this month no significant movement. There is persistent and slightly worsening hydronephrosis of the right kidney. Kidney function is normal urinalysis unremarkable no evidence of sepsis. I also had an extensive discussion regarding the patient's work lost over the last month and issues he is having with [facility] and he desires not to miss any significant amounts of work if possible. Therefore I attempted to call Dr. Krueger's team whom he had seen in clinic earlier this month and had been told that a trial of passage would be reasonable. However they were not on-call. Subsequently I spoke to [facility] transfer center, Dr. Wynne as well as Dr. Finch who is on-call for urology at [facility]. I explained the case to them. Patient is symptomatically controlled right now and reasonable to have outpatient follow-up. In an effort to prevent the patient from missing extra work by having 2 surgeries they will try to get him into their clinic early this week and have both surgeries including stent and stone management done at once. They have taken the patient and the patient significant others contact information will contact them on Monday or Monday to schedule this outpatient follow-up. The patient understands that if his symptoms return and worsen to return to the emergency department ideally at a place where there is interventional urology specifically [facility]. He is welcome to come back here and we can transfer him as well and he is aware that. Prescription sent to the patient's pharmacy patient discharged in stable and improved condition. Procedures <Jeremy Jordan MD - Last Filed: 11/02/24 06:52> Risk/Benefits of Procedure(s) Were Explained: Yes Critical Care <Jeremy Jordan MD - Last Filed: 11/02/24 06:52> Critical Care Time Critical Care Time: No
[2024-11-02] MEDS: MORPHINE 4MG/ML SYRINGE 4 MG IV (06:41)
[2024-11-02] MEDS: ONDANSETRON 4MG/2ML VIAL 4 MG IV (06:41)
[2024-11-02] MEDS: ACETAMINOPHEN 500MG TAB 1000 MG PO (06:41)
[2024-11-02] MEDS: KETOROLAC 30MG/ML VIAL 30 MG IV (06:41)
[2024-11-02 06:42] LABS: Basophils % 0.3 % (0.1-2.0); Eosinophils # 0.1 Kmm3 (0.0-0.4); Hematocrit 45.8 % (42.0-52.0); Hemoglobin 16.2 g/dL (14.1-18.0); Immature Granulocytes # 0.02 10^3uL; Immature Granulocytes % 0.2 %; Lymphocytes # 1.3 K/mm3 (0.7-4.5); Mean Corpuscular HGB Conc 35.4 g/dL (31.8-35.4); Mean Corpuscular Hemoglobin 32.1 pg (27.0-31.2); Mean Corpuscular Volume 90.9 fl (80-94); Mean Platelet Volume 9.7 fl (7.4-10.4); Monocytes # 0.7 K/mm3 (0.1-1.0); Monocytes % 7.7 % (1.7-9.3); Neutrophils # 7.3 K/mm3 (1.8-7.8); Neutrophils % 76.8 % (37.0-80.0); Nucleated Red Blood Cells # 0 10^3/uL; Nucleated Red Blood Cells % 0 %; Platelet Count 189 K/mm3 (142-424); Red Blood Count 5.04 M/mm3 (4.60-6.20); Red Cell Distribution Width 12.8 % (11.5-17.5); Red Cell Distribution Width-SD 42.1 fL; White Blood Count 9.5 K/mm3 (4.8-10.8)
[2024-11-02 06:45] LABS: Albumin Level 4.3 g/dl (3.5-5.0); Chloride 106 mmol/L (98-107); Potassium 4.4 mmoL/L (3.5-5.1); Sodium 142 mmol/L (136-145)
[2024-11-02 06:47] LABS: Blood Urea Nitrogen 13 mg/dl (9-20); Creatinine Clearance Estimated 171 mL/min (50-200); Estimated Glomerular Filt Rate 89 ml/min (>60); GFR (African American) 108 ML/MIN (>60)
[2024-11-02 06:48] LABS: Alanine Aminotransferase 17 U/L (12-78); Albumin/Globulin Ratio 1.9 (1.1-1.8); Alkaline Phosphatase 58 U/L (38-126); Anion Gap 12.4 mEq/L (5-15); Aspartate Amino Transferase 21 U/L (17-59); Bilirubin,Total 0.5 mg/dl (0.2-1.3); Calcium 8.9 mg/dl (8.4-10.2); Carbon Dioxide 28 mmol/L (22.0-30.0); Globulin 2.3 g/dL (1.3-3.2); Glucose 126 mg/dl (74-100); Total Protein,Serum 6.6 g/dl (6.3-8.2)
[2024-11-02 07:07] LABS: Microscopic, Urine URINE MICROSCOPIC (MICROSCOPIC)
[2024-11-02 07:08] LABS: Appearance,Urine CLEAR (Clear); Bilirubin,Urine Negative (Negative); Blood, Urine 2+ (Negative); Color,Urine YELLOW (Yellow); Glucose,Urine (UA) Negative (Negative); Ketones,Urine Negative (Negative); Leukocyte Esterase,Urine Negative (Negative); Nitrate,Urine Negative (Negative); PH,Urine 6.5 (5.0-8.5); Protein,Urine Negative (Negative); Urobilinogen,Urine 0.2 EU/dl (0.2)
--- NOTE | 2024-11-02 07:15 | PC.NURSE ---
Pt back from radiology
[2024-11-02] MEDS: IOPAMIDOL-370 (76%);100ML BOTTLE 75 ML IV (07:17)
[2024-11-02] MEDS: SODIUM CHLORIDE 0.9% 10ML SYR (RAD ONLY) 10 ML IV (07:17)
[2024-11-02 07:19] LABS: Amorphous Sediment,Urine 2+ /lpf
--- NOTE | 2024-11-02 08:00 | PC.NURSE ---
Joey Cao called [facility] for transfer per Dr Caceres for urology. [facility] has no urology subscription clerk at this moment. Dr Caceres was made aware.
--- NOTE | 2024-11-02 08:14 | PC.NURSE ---
called radiology to [facility] to [place]. will make a disc
--- NOTE | 2024-11-02 08:18 | PC.NURSE ---
called [facility] per Dr Caceres for consult with Urology for kidney stones. [facility] advised Urology would call back.
--- NOTE | 2024-11-02 08:19 | PC.NURSE ---
images have been power shared to [facility]
--- NOTE | 2024-11-02 08:44 | PC.NURSE ---
Dr Caceres on phone with at this time
== END 2024-11-02 09:11 | disposition home or self-care (01) ==
PROVIDERS: Emergency Provider Emergency Medicine; PCP Family Medicine
DX: N13.0 Hydronephrosis with ureteropelvic junction obstruction (principal); N13.4 Hydroureter; R11.0 Nausea; F17.210 Nicotine dependence, cigarettes, uncomplicated
CPT/HCPCS: 74177; 80053; 81001; 85025; 96374; 96375; 99285; J1885; J2270; J2405; Q9967

== ENCOUNTER 2025-03-17 15:11 | Outpatient (CLI) | payer BC, SELFPAY ==
--- NOTE | 2025-03-17 15:12 | CT_ITS ---
FINAL REPORT CLINICAL HISTORY: SCREENING, patient is a current smoker and smokes 2 packs per day. patient stated that he has been a smoker for over 30 years. 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 FINDINGS: CT CHEST LOW DOSE SCREENING HISTORY: Screening exam for lung cancer. DOSE: CTDI vol: 2.90 mGy, DLP: 96.38 mGy*cm TECHNIQUE: Axial CT without IV contrast administration using low dose protocol. This study was performed with techniques to keep radiation doses as low as reasonably achievable, (ALARA). Individualized dose reduction techniques using automated exposure control or adjustment of mA and/or kV according to the patient's size were employed. No acute lung disease is present. No pulmonary lesions are seen suspicious for neoplasm. No pleural or pericardial effusion is seen. No adenopathy or mass lesion is present. IMPRESSION: No evidence of lung cancer LUNG RADS CATEGORY 1 RECOMMENDATION: 12 month LDCT follow up Reviewed, Interpreted and Dictated by Jennifer Perez MD Transcribed by La Nena Gonzalez Authenticated and [facility]
--- OUTSIDE RECORDS SUMMARY | 2025-03-17 15:14 | XMS_ITS | Data Portability ---
Author Organization [place] - [facility] [place] Address [address] [place] [address] Care Team Providers Care Product Finisher Name Role Phone BULMARO BREWER Primary Care Provider Assessment No assessment recorded. Plan of Treatment Reminders Order Date Submit Date Provider Last Modified By Organization Details Last Modified Time Details Appointments None recorded. Lab urinalysis , dipstick 2024 025 [email or web address] [facility], [address] [place] [address], [address], 5 09:44:38 Referral None recorded. Procedures None recorded. Surgeries None recorded. Imaging XR, abdomen, 1 view 2024 025 [facility] (Central Scheduling), [address] [place] [address], [address], 5 19:25:05 Medication Orders None recorded. Patient TargetsNo targets recorded. Patient InstructionsNo instructions recorded. Reason for Referral None Reported. Results Created Date Observation Date Name Description Value Unit Range Abnormal Flag Note LastModifiedBy Organization Detail LastModifiedTime 10/15/19 25 10/14/2024 urina lysis , dipst ick Leukocytes (reference range) trace Not Available [facility] [address] [place] [address], [address], 10/14/2024 14:36:41 10/15/19 25 10/14/2024 urina lysis , dipst ick Nitrite (reference range:) negati ve Not Available [facility] [address] [place] [address], [address], 10/14/2024 14:36:41 10/15/19 25 10/14/2024 urina lysis , dipst ick Urobilinogen (reference range) 0.2 Not Available [address], [address], 10/14/2024 14:36:41 10/15/19 25 10/14/2024 urina lysis , dipst ick Protein (reference range) negati ve Not Available [address], [address], 10/14/2024 14:36:41 10/15/19 25 10/14/2024 urina lysis , dipst ick pH (reference range 5-8.5) 7.0 Not Available [address], [address], 10/14/2024 14:36:41 10/15/19 25 10/14/2024 urina lysis , dipst ick Blood (reference range:) small Not Available [address], [address], 10/14/2024 14:36:41 10/15/19 25 10/14/2024 urina lysis , dipst ick Specific [place] (reference range) 1.015 Not Available [address], [address], 10/14/2024 14:36:41 10/15/19 25 10/14/2024 urina lysis , dipst ick Ketone (reference range) negati ve Not Available [address], [address], 10/14/2024 14:36:41 10/15/19 25 10/14/2024 urina lysis , dipst ick Bilirubin (reference range) negati ve Not Available [address], [place], [address], 10/14/2024 14:36:41 10/15/19 25 10/14/2024 urina lysis , dipst ick Glucose (reference range) negati ve Not Available [facility] [address] [place] [address], [address], 10/14/2024 14:36:41 10/15/19 25 10/14/2024 urina lysis , dipst ick Color (reference range: yellow-brown ) Yellow Not Available [facility] [address] [place] [address], [address], 10/14/2024 14:36:41 11/08/19 25 11/07/2024 RFS-P ATHOL OGY SPECI MEN REQUE ST [facility] [address] [place] [address] Phone or [phone] Fax [phone] Nam mehta Jr., M.D., Medic al Dire[facility] [address] : [place] [address] Phone Numbe r: [phone] Shawn acuna M.D. PATHO LOGY REPOR T Patie nt Name: ASHLEY Noland Date of : 1970 Age/S ex: 53/M Accou nt Numbe r: [id number] Medic al Recor d Numbe r: [id number] Order ing MD: ARYAN SHAFER AM Date Colle cted : 025 Date Recei phuong : 025 Date Repor bruce : 025 Exam: Biops y Acces chula# : [id number] Labor atory #: [id number] Copie s To: ZHOU CHAMBERLAIN Techn ician : Clini rita Histo ry Right urete ral stone BodyS ite URETE RAL STONE Gross Descr iptio n Recei phuong fresh label ed righ t urete ral stone is a 0.7 x 0.3 x 0.2 cm burnette, meryl colby firm tissu e gross ly consi stent with calcu li. Speci men is recei phuong for gross only, no block s are submi tted. MTS Final Diagn osis GROSS DIAGN OSIS: GROSS LY CONSI STENT WITH URETE RAL CALCU LI BG/[place] [address] Legal ly authe ntica bruce by ARIEL MOROCHO MD 11-11 15:38 :00 Not Available [facility] (Pre-Op [facility]) [address] [place] [address] [place], [address], 11/11/2024 16:00:47 10/15/1910/08/2024 CT, abdom en + pelvi s, w/o contr ast No observ ation record ed. [email or web address] [facility] (Med Record) [address], [place], [address], 11/12/2024 08:38:55 10/17/1910/14/2024 XR, abdom en, 1 view [facility] [address] [place] [address] (Phone ) GILMER Alaniz REPORT Name: HOWARD RAMIREZ : 1970 Accoun t #: [id number] Age: 53 Years Patien t Type: Outpat ient Sex: M Access ion#: [id number] Exam Descri ption: ABD KUB 1V Exam Reason : N20.1 CALCUL US OF URETER Order Date/T leslie: 2024 03:39: 09 PM Dictat ed By: Milad tomlinson MD Orderi Physic judith: SONI, WILLIA M Attend ing Physic judith: ZOIE SHAFER EXAM DESCRI PTION: XR ABDOME N 1 VIEW (KUB) CLINIC AL INDICA TION: N20.1 CALCUL US OF URETER COMPAR LAUREN: None. TECHNI QUE: 1 view radiog raph of the abdome n was obtain ed. FINDIN GS: There is no gross pneumo perito neum on this single projec tion. No eviden ce of small bowel dilata tion. Modera te fecal loadin g of the colon. Left-s ided renal calcul us measur ing 4 mm. IMPRES CHULA: 1. Left-s ided nephro lithia sis. 2. Modera te fecal loadin g of the colon. Electr onical ly signed by: Milad tomlinson MD 2024 07:21 PM EDT RP Workst ation: [id number] PAGE 1 OF 2 Name: HOWARD RAMIREZ : 1970 Accoun t #: [id number] Age: 53 Years Patien t Type: Outpat ient Sex: M Access ion#: [id number] Exam Descri ption: ABD KUB 1V Exam Reason : N20.1 CALCUL US OF URETER Order Date/T leslie: 2024 03:39: 09 PM Princi pal Interp reter Name: Milad tomlinson Provid er ID: [id number] PAGE 2 OF 2 CC'ed Logic: Orderi ng Provid er: SONI Giang CC Provid er: SONJA CHAMBERLAIN Attend ing Provid er: SONI Giang Referr ing Provid er: SONI Giang Admitt ing Provid er: SONI Giang [email or web address] [facility] (Central Scheduling) [address] [place], [place] [address], [address], 11/22/2024 22:47:11 11/06/19 25 11/02/2024 CT, abdom en + pelvi s, w/ contr ast No observ ation record ed. [email or web address] [facility] (Med Record) [address], [place], [address], 11/21/2024 14:03:04 Result Notes Documentation Provider Name and Address Organization Details Recorded Time Xr, Abdomen, 1 View : [address] [place], [place] [address] (Phone) IMAGING REPORT Name: HOWARD RAMIREZ : 1970 Age: 53 Years Patient Type: Outpatient Sex: M Exam Description: ABD KUB 1V Exam Reason: N20.1 CALCULUS OF URETER Order Date/Time: 10/14/2024 03:39:09 PM Dictated By: Milad Forte MD Ordering Physician: RUBI SHAFER Attending Physician: RUBI SHAFER EXAM DESCRIPTION: XR ABDOMEN 1 VIEW (KUB) CLINICAL INDICATION: N20.1 CALCULUS OF URETER COMPARISON: None. TECHNIQUE: 1 view radiograph of the abdomen was obtained. FINDINGS: There is no gross pneumoperitoneum on this single projection. No evidence of small bowel dilatation. Moderate fecal loading of the colon. Left-sided renal calculus measuring 4 mm. IMPRESSION: 1. Left-sided nephrolithiasis. 2. Moderate fecal loading of the colon. Electronically signed by: Milad Forte MD 10/16/2024 07:21 PM EDT RP PAGE 1 OF 2 Name: HOWARD RAMIREZ : 1970 Age: 53 Years Patient Type: Outpatient Sex: M Exam Description: ABD KUB 1V Exam Reason: N20.1 CALCULUS OF URETER Order Date/Time: 10/14/2024 03:39:09 PM Principal Prep Manager Name: Milad Forte Provider ID: [id number] PAGE 2 OF 2 CC'ed Logic: Ordering Provider: SONI VENEGAS CC Provider: DANIELLA CHAMBERLAIN Attending Provider: SONI VENEGAS Referring Provider: SONI VENEGAS Admitting Provider: SONI Shafer Jr, MD [address] [place] [address], [address], [address] & [place] 11/22/2024 22:47:12 Procedures Surgical History Date Name Laterality Status Provider Name and Address Organization Details Recorded Time 5 Colonoscopy completed Dameon HORN - NT [facility] [place] 10/14/2024 13:50:24 2 Other completed Dameon HORN - [facility] [place] 10/14/2024 13:50:24 Imaging Results None recorded. Procedure Notes None recorded. Medical Equipment None Reported. Allergies No known drug allergies Medications Name Sig Start Date Stop Date Status Note LastModified by Organization Details LastModified Time ibuprofen 800 mg tablet TAKE 1 TABLET BY MOUTH THREE TIMES DAILY NEEDED FOR PAIN FOR 7 DAYS active Not Available Not Available N ot Available hydrocodone 5 mg-acetamino phen 325 mg tablet TAKE 1 TABLET BY MOUTH EVERY 6 HOURS NEEDED FOR PAIN FOR 3 DAYS active Not Available Not Available No t Available tamsulosin 0.4 mg capsule TAKE 1 CAPSULE BY MOUTH ONCE DAILY FOR 7 DAYS active Not Available Not Available No t Available ondansetron 4 mg disintegrati ng tablet DISSOLVE 1 TABLET IN MOUTH EVERY 6 HOURS NEEDED FOR NAUSEA AND VOMITING FOR 5 DAYS active Not Available Not Available N ot Available cefdinir 300 mg capsule TAKE 1 CAPSULE BY MOUTH 2 TIMES A DAY FOR 10 DAYS active Not Available Not Available Not Available irbesartan 300 mg tablet TAKE ONE TABLET BY MOUTH ONCE A DAY active Not Available Not Available No t Available Zyrtec active Not Available Not Availa ble Not Available tadalafil 2.5 mg tablet TAKE 1 TABLET BY MOUTH ONCE A DAY active Not Available Not Available No t Available Wegovy 2.4 mg/0.75 mL subcutaneous pen injector INJECT 2.4 MG SUBCUTANEOU SLY ONCE WEEKLY active Not Available Not Available No t Available Vitals Date Recorded Body height Body mass index (BMI) Body weight Body temperature Provider Name and Address Organization Details Last Updated DateTime 10/14/2024 175.26 cm 40.6 kg/m2 635343.9 g 98.1 [degF] Dameon Loo ROZ [facility] [place] 10/14/2024 13:50:16 Date Recorded Body height Body mass index (BMI) Body weight Provider Name and Address Organization Details Last Updated DateTime 11/12/2024 175.26 cm 40.6 kg/m2 985535.9 g Sarah Loo ROZ [facility] [place] 11/12/2024 08:04:59 Social History Question Answer Notes LastModified by Organizat ion Details LastModified Time Tobacco Smoking Status Current Every Day Smoker KORY Desouza [facility] [place] 10/14/2024 13:50:22 Do You Have An Advance Directive? No Information not available 10/14/2024 Are You Blind Or Do You Have Difficulty Seeing? No Information not available 10/14/2024 What Was The Date Of Your Most Recent Tobacco Screening? 10/13/2024 Information not available 10/14/2024 How Much Tobacco Do You Smoke? 1 PPD Information not available 10/14/2024 How Many Years Have You Smoked Tobacco? 25 Information not available 10/14/2024 Sex: Unknown Functional Status Question Answer Note LastModified by Organizat ion Details LastModified Time Do you use any illicit or recreational drugs? No Information not available 10/14/2024 What is your level of alcohol consumption? Occasional Information not available 10/14/2024 Do you or have you ever used smokeless tobacco? [id number] Information n ot available 10/14/2024 What is your exercise level? Moderate Information not available 10/14/2024 Mental Status Question Answer Note LastModified by Organization D etails LastModified Time Do you feel stressed (tense, restless, nervous, or anxious, or unable to sleep at night)? IN0104-7 Information not available 10/14/2024 Family History Nothing Reported. Medical History Condition Response Kidney or Bladder Problems Y Hypertension Y Past Encounters Encounter ID Performer Location Encounter Start Date Encounter Closed Date Diagnosis/Indication Diagnosis SNOMED-CT Code Diagnosis ICD10 Code Diagnosis IMO Codes Diagnosis Note [id number] Rubi Shafer Jr, MD [facility] [address] [place], [place] [address]ann [facility] [employer] [phone] 10/14/2024 13:23:12 10/14/2024 14:38:37 Ureteric stone 16346832 N20.1 [id number] 53-year-ol d white male with history of nephrolith iasis. He had onset of acute right flank pain last week and CT scan dated 10/07/2024 shows a 6 mm stone in the right mid ureter. We discussed treatment options including trial of passage versus stone extraction . Patient wished to try to pass the stone. a KUB was performed today and showed a possible calcificat ion in the right mid ureter. We discussed returning in 2 weeks with a KUB. He will continue to push fluids and strain his urine. [id number] Rubi Shafer Jr, MD [facility] [address] [place], [place] [address] [address] 11/12/2024 08:01:17 11/12/2024 08:47:13 Ureteric stone 97109301 N20.1 [id number] 53-year-ol d white male with history of nephrolith iasis. He had onset of acute right flank pain last week and CT scan dated 10/07/2024 shows a 6 mm stone in the right mid ureter. patient had been observing a trial of passage until a bout of recurrent renal colic. He went back to the emergency room at [facility] and continued to show a 6 mm stone in the mid right ureter. Patient then underwent right ureterosco py and stone extraction on November 07. Stent was placed and patient remove the stent this morning with use of the attached string. He denies any postop problems. Stone analysis is pending. We discussed his previous CT which showed a another stone in the left kidney. We will watch that. We discussed measures to decrease risk of further stone formation including increasing his water intake and low oxalate diet was given today. Follow up p.r.n.. Health Concerns Section Related Observation LastModified by Organization Detai ls LastModified Time None Recorded Concern Status LastModified by Organization Details LastModified Time None Recorded Advance Directives Directive N: Payers Insurance Date Sequence Insurance Name Policy Number Policy Winter Covered Member ID Winter Member ID Guarantor Name 11/12/2024 1 [employer] [id number] Howard Ramirez [id number] Hoawrd Ramirez Notes Date Note Type Note Provider Name and Address Organization Details Recorded Time 10/14/2024 text/html ROS as noted in the HPI Patient is a 53-year-old white male with a history of nephrolithiasis. He experienced some right flank pain last week and went to the emergency room at [facility] on October 07. CT scan revealed a 6 mm stone in the right mid ureter with moderate hydronephrosis above the stone. Also an indeterminate 2 cm lesion was present. Patient states he has had no pain since the emergency room visit. He was currently on Flomax. His urinalysis today shows small amount of blood on dipstick. He was not notice passing the stone to date. Records reviewed from his emergency room visit dated October [address] scan was also reviewed. Rubi Shafer Jr, MD [address] [place] [address], [address], [place], [address], [place] - [facility] [place] [facility] [place] 11/07/2024 11:28:39 11/12/2024 text/html ROS as noted in the HPI Patient is 53-year-old white male status post right ureteroscopy, laser lithotripsy, stone extraction stent placement 5 days ago. He returns today in routine follow-up. He states he removed his stent with use of string this morning. He was been off work since his procedure due to the stent discomfort. Stone analysis is pending. Previous CT scan has shown only a single stone in his left kidney does 5 mm in size and nonobstructing. He has a history of several stones since his 20s. Rubi Shafer Jr, MD [address] [place] [address], [address], [place], [address], [place] - [facility] [place] [facility] [place] 11/12/2024 09:06:59
--- OUTSIDE RECORDS SUMMARY | 2025-03-17 15:14 | XMS_ITS | Data Portability ---
Author Organization [facility] Address [address] [facility] [address] [place] [address] Assessment Encounter Date Assessment Date Assessment LastModified [...] draped in the standard surgical fashion. A 21-Kittitian cystoscope passed into the urethra and into [...] stone into small fragments and a 2.4 Kittitian Nitinol stone basket then used to basket the larger fragments out. After all the significant stones were removed, the ureteroscope was removed and there was no injury to the ureter. We replaced our cystoscope and back loaded the wire over the scope and passed a 4.8 x 26 Kittitian stent. The wire was removed and a [...] nidus Not observ ed normal Not Available [facility] [address] [place], [address], 09/28/2017 17:05:32 09/26/19 18 09/28/2017 kidne y stone yulia sis composition See Below normal Calci um Oxala te Dihyd rate (Wedd ellit e) 60% Calci um Oxala te Monoh ydrat e (Whew ellit e) 20% Carbo vini Apati te (Dahl lite) 20% Not Available [facility] [address] [place], [address], 09/28/2017 17:05:32 09/26/19 18 09/28/2017 kidne y [...] AT: [facility] [address] [facility] [place] [phone] Rahat URBANO,PHD Not Available [facility] [place], [address], 09/28/2017 17:05:32 Result Notes None recorded. Medical Equipment None Reported. Medications Name Sig Start Date Stop Date Status Note LastModified by Organization Details LastModified Time Keflex 500 mg capsule Take 1 capsule every 6 hours by oral route. 018 active Not Available Not Available Not Avai lable Homer 5 mg-325 mg tablet Take 1 tablet [...] ICD10 Code Diagnosis IMO Codes Diagnosis Note [id number] HONG SHAFER MD SURGERY SCHEDULE [address] [place] [address] 09/25/2017 14:16:59 09/25/2017 14:17:42 Health Concerns Section Related Observation LastModified by Organization Detai ls LastModified Time None Recorded Concern Status LastModified by Organization Details LastModified Time None Recorded Advance Directives Directive None Recorded Payers Insurance Date Sequence Insurance Name Policy Number Policy Winter Covered Member ID Winter Member ID Guarantor Name 04/01/2020 1 [place] [id number] Howard Peacock [id number] James Peacock
== END 2025-03-17 23:59 | disposition home or self-care (01) ==
LOC: RAD 15:11
PROVIDERS: PCP Family Medicine; Visit Provider Family Medicine
DX: Z12.2 Encounter for screening for malignant neoplasm of respiratory organs (principal); F17.210 Nicotine dependence, cigarettes, uncomplicated; Z77.29 Contact with and (suspected) exposure to other hazardous substances
CPT/HCPCS: 71271